=== PATIENT | female | born 1960 | race Two or more races ===

== ENCOUNTER 2016-11-14 12:51 | Inpatient (IN) | payer OTHER ==
[2016-11-14] MEDS ORDERED: ALBUTEROL SO4 2.5/IPRATROPIUM 0.5 INH SOL 3 ML VIAL.NEB. NEB ONE (13:25)
--- NOTE | 2016-11-14 13:42 | PDOC ---
History of Present Illness - General Chief Complaint: Shortness of Breath Stated Complaint: ASTHMA Time Seen by Provider: 11/14/16 13:33 History Source: Patient Exam Limitations: No Limitations - History of Present Illness Initial Comments: 11/14/16 18:54 Chief complaint: Wheezing shortness of breath History of present illness: Patient is a 56 year old female with history of hiatal hernia, hyperlipidemia, and asthma here today sent by her primary care provider due to worsening asthma with shortness of breath and wheezing. Patient reports had received 3 courses of prednisone during the last month. Patient denies any fever or chills. She reports that symptoms worsened last week. Patient currently is receiving tapering dose of prednisone is down to 30 mg daily has decreased by 10 mg every 2 days. Was intubated once many years ago due to her asthma. 11/14/16 18:55 11/14/16 18:58 Timing/Duration: getting worse Severity: moderate Associated Symptoms: reports: shortness of breath, other (wheezing ) Past History - Past Medical History Allergies/Adverse Reactions: Allergies Allergy/AdvReac Type Severity Reaction Status Date / Time No Known Allergies Allergy Verified 11/14/16 13:06 Home Medications: Ambulatory Orders Atorvastatin Ca [Lipitor] 20 mg PO DAILY 02/18/16 Esomeprazole Magnesium [Nexium 24Hr] 20 mg PO DAILY 02/18/16 Mometasone/Formoterol [Dulera 100 Mcg/5 Mcg Inhaler] 2 inh IH BID PRN 02/18/16 Amlodipine Besylate 10 mg PO ASDIR 11/14/16 Prednisone [Deltasone -] 10 mg PO ASDIR 11/14/16 Asthma: Yes GI Disorders: Yes (hiatal hernia gerd) Disorders: Yes (UTERINE FIBRIODS) Hypercholesterolemia: Yes Thyroid Disease: No - Surgical History Orthopedic Surgery: Yes (Right Elbow) - Psycho/Social/Smoking Cessation Hx Anxiety: Yes Suicidal Ideation: No Smoking Status: No Smoking History: Never smoked Have you smoked in the past 12 months: No Number of Cigarettes Smoked Daily: 0 Information on smoking cessation initiated: No Hx Alcohol Use: No Drug/Substance Use Hx: No Substance Use Type: None Hx Substance Use Treatment: No Review of Systems - Review of Systems Able to Perform ROS?: Yes Constitutional: No: Symptoms Reported HEENTM: No: Symptoms Reported Respiratory: Yes: Wheezing. No: Shortness of Breath Cardiac (ROS): No: Symptoms Reported ABD/GI: No: Symptoms Reported : No: Symptoms Reported Musculoskeletal: No: Symptoms Reported Integumentary: No: Symptoms Reported Neurological: No: Symptoms reported *Physical Exam - Vital Signs Last Vital Signs Temp Pulse Resp BP Pulse Ox 98.1 F 66 18 162/86 100 11/14/16 13:00 11/14/16 13:00 11/14/16 13:00 11/14/16 13:00 11/14/16 13:00 - Physical Exam General Appearance: Yes: Appropriately Dressed HEENT: positive: Normal ENT Inspection Neck: negative: Lymphadenopathy (R), Lymphadenopathy (L) Respiratory/Chest: positive: Wheezing (expiratory wheeze diffusely with grunt). negative: Chest Tender, Respiratory Distress, Accessory Muscle Use, Labored Respiration, Rapid RR, Decreased Breath Sounds, Crackles, Rales, Rhonchi, Stridor, Dullness Integumentary: positive: Normal Color ED Treatment Course - LABORATORY CBC & Chemistry Diagram: 11/14/16 14:06 11/14/16 14:06 Medical Decision Making - Medical Decision Making 11/14/16 18:58 11/14/16 18:58 Patient is a 56 year old female with history of hiatal hernia, hyperlipidemia, and asthma here today sent by her primary care provider due to worsening asthma with shortness of breath and wheezing. Patient reports had received 3 courses of prednisone during the last month. Patient denies any fever or chills. She reports that symptoms worsened last week. Patient currently is receiving tapering dose of prednisone is down to 30 mg daily has decreased by 10 mg every 2 days. Was intubated once many years ago due to her asthma. Pt. sent by PCP, she spoke with Dr. Gomez. asthma exacerbation PLAN: milagros now spoke to Dr. Gomez attending and Merissa Leavitt charge nurse pt,. to be transferred to the main ED for further eval *DC/Admit/Observation/Transfer Diagnosis at time of Disposition: Asthma exacerbation
[2016-11-14] MEDS ORDERED: methylPREDNISolone NA SUCC 125 MG/2 ML VIAL IVPB ONE (14:07)
--- NOTE | 2016-11-14 14:07 | PDOC ---
History of Present Illness - General Chief Complaint: Shortness of Breath Stated Complaint: ASTHMA Time Seen by Provider: 11/14/16 13:33 - History of Present Illness Initial Comments: 11/14/16 14:07 CHIEF COMPLAINT: Shortness of breath HISTORY OF PRESENT ILLNESS: This is a 56-year-old female with a history of asthma (history of intubation in 1992, on daily Dulera/albuterol), HTN, and HLD who presents for evaluation of shortness of breath and wheezing. Patient believes that her symptoms started when she was started on amlodipine for hypertension. She is sent by her PCP for evaluation because a course of outpatient prednisone (3 days) and home nebulizer treatments have been unsuccessful. Patient reports dry cough. She denies fevers/chills or any other symptoms. V/s on arrival are notable for BP 162/86. PCP [address] Dr. Heidi Lamas REVIEW OF SYSTEMS: GENERAL/CONSTITUTIONAL: No fever or chills. No weakness. No weight change. HEAD, EYES, EARS, NOSE AND THROAT: No change in vision. No ear pain or discharge. No sore throat. CARDIOVASCULAR: No chest pain or palpitations. RESPIRATORY: See HPI. GASTROINTESTINAL: No nausea, vomiting, diarrhea or constipation. GENITOURINARY: No dysuria, frequency, or change in urination. MUSCULOSKELETAL: No joint or muscle swelling or pain. No neck or back pain. SKIN: No rash or easy bruising. NEUROLOGIC: No headache, vertigo, loss of consciousness, or loss of sensation. PSYCHIATRIC: No depression or anxiety. ENDOCRINE: No increased thirst. No abnormal weight change. HEMATOLOGIC/LYMPHATIC: No anemia, easy bleeding, or history of blood clots. ALLERGIC/IMMUNOLOGIC: No hives or skin allergy. No latex allergy. PHYSICAL EXAM: GENERAL: The patient is awake, alert, and fully oriented, in no acute distress. HEAD: Normal with no signs of trauma. ENT: Pupils equal, round and reactive to light, extraocular movements intact, sclera anicteric, conjunctiva clear. Neck supple. LUNGS: Diffuse expiratory wheezing with poor air entry bilaterally. Dry cough. CV: RRR, S1/S2, no MRG. Cap refill < 2 sec. ABDOMEN: Soft, non-distended, non-tender. EXTREMITIES: Normal range of motion, 1+ pedal edema bilaterally. NEUROLOGICAL: Normal speech, normal gait. CN II-XII grossly intact. PSYCH: Normal mood, normal affect. SKIN: Warm, dry, normal turgor, no rashes or lesions noted. Past History - Past Medical History Allergies/Adverse Reactions: Allergies Allergy/AdvReac Type Severity Reaction Status Date / Time No Known Allergies Allergy Verified 11/14/16 13:06 Home Medications: Ambulatory Orders Atorvastatin Ca [Lipitor] 20 mg PO DAILY 02/18/16 Esomeprazole Magnesium [Nexium 24Hr] 20 mg PO DAILY 02/18/16 Mometasone/Formoterol [Dulera 100 Mcg/5 Mcg Inhaler] 2 inh IH BID PRN 02/18/16 Amlodipine Besylate 10 mg PO ASDIR 11/14/16 Prednisone [Deltasone -] 10 mg PO ASDIR 11/14/16 Asthma: Yes GI Disorders: Yes (hiatal hernia gerd) Disorders: Yes (UTERINE FIBRIODS) Hypercholesterolemia: Yes Thyroid Disease: No - Surgical History Orthopedic Surgery: Yes (Right Elbow) - Psycho/Social/Smoking Cessation Hx Anxiety: Yes Suicidal Ideation: No Smoking Status: No Smoking History: Never smoked Have you smoked in the past 12 months: No Number of Cigarettes Smoked Daily: 0 Information on smoking cessation initiated: No Hx Alcohol Use: No Drug/Substance Use Hx: No Substance Use Type: None Hx Substance Use Treatment: No *Physical Exam - Vital Signs Last Vital Signs Temp Pulse Resp BP Pulse Ox 98.1 F 66 18 162/86 100 11/14/16 13:00 11/14/16 13:00 11/14/16 13:00 11/14/16 13:00 11/14/16 13:00 ED Treatment Course - LABORATORY CBC & Chemistry Diagram: 11/14/16 14:06 11/14/16 14:06 - RADIOLOGY Radiology Studies Ordered: Category Date Time Status CHEST X-RAY PORTABLE* [RAD] Stat Radiology 11/14/16 14:02 Ordered Medical Decision Making - Medical Decision Making 11/14/16 16:00 A/P: 56 year old female with wheezing and dyspnea unrelieved by prednisone and alubterol nebulizers at home. 1. EKG 2. Basic labs 3. CXR 4. DuoNeb x 1 followed by albuterol nebs x 3 5. SoluMedrol 125mg IVP x 1 6. Re-assess 11/14/16 16:57 CXR: Increased interstitial markings. Patient re-evaluated. Still with diffuse expiratory wheezing, no improvement in symptoms. Will give Magnesium, place in observation. *DC/Admit/Observation/Transfer Diagnosis at time of Disposition: Exacerbation of asthma - Discharge Dispostion Condition at time of disposition: Guarded Admit: Yes - Referrals Referrals: Heidi Lamas MD [Primary Care Provider] -
[2016-11-14] MEDS: ALBUTEROL SO4 0.083% IH SOL 2.5 MG/3 ML VIAL.NEB. NEB SCH ×3 (14:15→14:45)
[2016-11-14] MEDS ORDERED: ALBUTEROL SO4 0.083% IH SOL 2.5 MG/3 ML VIAL.NEB. NEB ONE (14:27)
[2016-11-14] MEDS ORDERED: methylPREDNISolone NA SUCC 125 MG/2 ML VIAL ONE (14:27)
[2016-11-14 15:09] LABS: BASOPHIL 0.4 % (0-2.0); EOSINOPHIL 0.1 % (0-4.5); MCH 28.8 pg (25.7-33.7); MCHC 33.4 g/dl (32.0-36.0); MEAN CELL VOLUME 86.2 fl (80-96); MEAN PLT VOLUME 12.4 fl (7.5-11.1); NEUTROPHILS 82.4 % (42.8-82.8); PLATELET COUNT 225 K/MM3 (134-434); RDW 14.9 % (11.6-15.6); WHITE BLOOD COUNT 11.8 K/mm3 (4.0-10.0)
[2016-11-14 15:22] LABS: ALBUMIN 3.6 g/dl (3.4-5.0); ANION GAP 9 (8-16); BILIRUBIN,TOTAL 0.5 mg/dL (0.2-1.0); CALCIUM 8.9 mg/dL (8.5-10.1); CO2 25 mmol/L (21-32); CREATININE 0.8 mg/dL (0.55-1.02); GLUCOSE,RANDOM 184 mg/dL (74-106); SGPT/ALT 37 U/L (12-78); TOT PROT 7.3 g/dl (6.4-8.2)
[2016-11-14 15:25] LABS: ALK PHOS 85 U/L (45-117)
[2016-11-14 15:26] LABS: SGOT/AST 37 U/L (15-37)
[2016-11-14] MEDS ORDERED: MAGNESIUM SULF 50% (8.12 MEQ/2 ML-1 GM VIAL) IVPB ONE (16:55)
[2016-11-14] MEDS ORDERED: PATIENT'S OWN MEDICATION (NON-FORMULARY) (Mometasone/Formoterol [Dulera 100 Mcg/5 Mcg Inha IH PRN (17:13)
[2016-11-14] MEDS ORDERED: MAGNESIUM SULF 50% (8.12 MEQ/2 ML-1 GM VIAL) ONE (17:13)
[2016-11-14] MEDS: ALBUTEROL SO4 2.5/IPRATROPIUM 0.5 INH SOL 3 ML VIAL.NEB. NEB SCH ×2 (17:24→23:13)
--- NOTE | 2016-11-14 17:36 | PDOC ---
*Physical Exam - Vital Signs Last Vital Signs Temp Pulse Resp BP Pulse Ox 98.1 F 66 18 162/86 100 11/14/16 13:00 11/14/16 13:00 11/14/16 13:00 11/14/16 13:00 11/14/16 13:00 ED Treatment Course - LABORATORY CBC & Chemistry Diagram: 11/14/16 14:06 11/14/16 14:06 - ADDITIONAL ORDERS Additional order review: Laboratory Results 11/14/16 11/14/16 11/14/16 14:06 14:06 14:06 Sodium 140 Potassium 5.1 D Chloride 106 Carbon Dioxide 25 Anion Gap 9 BUN 15 Creatinine 0.8 Creat Clearance w eGFR > 60 Random Glucose 184 H D Calcium 8.9 Total Bilirubin 0.5 D AST 37 D ALT 37 D Alkaline Phosphatase 85 D B-Natriuretic Peptide 132.77 H Total Protein 7.3 Albumin 3.6 Urine HCG, Qual Negative 11/14/16 14:06 RBC 4.95 MCV 86.2 MCHC 33.4 RDW 14.9 D MPV 12.4 H D Neutrophils % 82.4 D Lymphocytes % 15.5 D Monocytes % 1.6 L Eosinophils % 0.1 D Basophils % 0.4 - Medications Given in the ED: ED Medications Discontinued Medications Generic Name Dose Route Start Last Admin Trade Name Freq PRN Reason Stop Dose Admin Albuterol Sulfate 1 amp 11/14/16 14:15 11/14/16 14:45 Ventolin 0.083% Nebulizer Soln - NEB 11/14/16 14:46 1 amp Q15M TAISHA Administration Magnesium Sulfate 2 gm 11/14/16 16:55 11/14/16 17:23 Magnesium Sulfate IVPB 11/14/16 16:56 2 gm ONCE ONE Administration Methylprednisolone Sodium Succinate 125 mg 11/14/16 14:07 11/14/16 14:44 Solu-Medrol - IVPB 11/14/16 14:08 125 mg ONCE ONE Administration Medical Decision Making - Medical Decision Making 11/14/16 17:35 Agree with RESPIRATORY SUPPORT TECHNICIAN's evaluation, assessment, and plan. 56 F with asthma exacerbation. Admit to obs for continuous nebs. *DC/Admit/Observation/Transfer Diagnosis at time of Disposition: Asthma exacerbation - Referrals Referrals: Heidi Lamas MD [Primary Care Provider] - - Patient Instructions - Post Discharge Activity
--- NOTE | 2016-11-14 18:09 | HP ---
CHIEF COMPLAINT: Shortness of breath PCP: Dr. Heidi Lamas HISTORY OF PRESENT ILLNESS: This is a 56 year old female with PMHx of asthma, HTN, hyperlipidemia, who presented to the ED with wheezing and shortness of breath. The patient reports her symptoms began "a few weeks ago" and she believes it is from her [facility]. She reports taking a 3 days course of prednisone and home nebulizers with no relief in her symptoms. She reports non-productive cough. She denies any hemoptysis, headache, dizziness, nausea, vomiting, chest pain, urinary symptoms. Off note, the patient reports starting a blood pressure medication (does not recall the name) in June. She reports the first BP med did not work and the second BP med that she was taking caused lower extremity and facial edema (also does not recall the name). ER course was notable for: (1) Temp 98.2, pulse 74, BP 131/72, O2 98% on RA, resp 20 (2) WBC 11.8 (3) Solu-medrol 125mg IVPB given, Duonebs given Recent Travel: denies PAST MEDICAL HISTORY: as above PAST SURGICAL HISTORY: Total hysterectomy and b/l salpingectomy Social History: Smoking: denies Alcohol: denies Drugs: denies Family History: Denies Allergies No Known Allergies Allergy (Verified 11/14/16 13:06) HOME MEDICATIONS: Home Medications Medication Instructions Recorded Atorvastatin Ca [Lipitor] 20 mg PO DAILY 02/18/16 Esomeprazole Magnesium [Nexium 20 mg PO DAILY 02/18/16 24Hr] Mometasone/Formoterol [Dulera 100 2 inh IH BID PRN 02/18/16 Mcg/5 Mcg Inhaler] Amlodipine Besylate 10 mg PO ASDIR 11/14/16 Prednisone [Deltasone -] 10 mg PO ASDIR 11/14/16 REVIEW OF SYSTEMS CONSTITUTIONAL: Absent: fever, chills, diaphoresis, generalized weakness, malaise, loss of appetite, weight change HEENT: Absent: rhinorrhea, nasal congestion, throat pain, difficulty swallowing , ear pain, eye pain, visual changes CARDIOVASCULAR: Absent: chest pain, syncope, palpitations, irregular heart rate , lightheadedness, peripheral edema RESPIRATORY: Shortness of breath and wheezing x "a few weeks". Absent: dyspnea with exertion, orthopnea, stridor, hemoptysis GASTROINTESTINAL:Absent: abdominal pain, abdominal distension, nausea, vomiting , diarrhea, constipation, melena, hematochezia GENITOURINARY: Absent: dysuria, frequency, urgency, hesitancy, hematuria, flank pain, genital pain MUSCULOSKELETAL: Absent: myalgia, arthralgia, joint swelling, back pain, neck pain SKIN: Absent: rash, itching, pallor HEMATOLOGIC/IMMUNOLOGIC: Absent: easy bleeding, easy bruising, lymphadenopathy, frequent infections ENDOCRINE:Absent: unexplained weight gain, unexplained weight loss, heat intolerance, cold intolerance NEUROLOGIC: Absent: headache, focal weakness or paresthesias, dizziness, unsteady gait, seizure, mental status changes, bladder or bowel incontinence PSYCHIATRIC: Absent: anxiety, depression, suicidal or homicidal ideation, hallucinations. PHYSICAL EXAMINATION Vital Signs Period Temp Pulse Resp BP Sys/Christy Pulse Ox Last 24 Hr 98.1 F 66 18 162/86 100 GENERAL: Awake, alert, and fully oriented, in no acute distress. HEAD: Normal with no signs of trauma. EYES: Pupils equal, round and reactive to light, extraocular movements intact, sclera anicteric, conjunctiva clear. No lid lag. EARS, NOSE, THROAT: Ears normal, nares patent, oropharynx clear without exudates. Moist mucous membranes. NECK: Normal range of motion, supple without lymphadenopathy, JVD, or masses. LUNGS: Forceful end expiratory wheezing. No crackles. No accessory muscle use. HEART: Regular rate and rhythm, normal S1 and S2 without murmur, rub or gallop. ABDOMEN: Soft, nontender, not distended, normoactive bowel sounds, no guarding, no rebound, no masses. No hepatomegaly or splenomegaly. MUSCULOSKELETAL: Normal range of motion at all joints. No bony deformities or tenderness. No CVA tenderness. UPPER EXTREMITIES: 2+ pulses, warm, well-perfused. No cyanosis. No clubbing. No peripheral edema. LOWER EXTREMITIES: 2+ pulses, warm, well-perfused. No calf tenderness. No peripheral edema. NEUROLOGICAL: Cranial nerves II-XII intact. Normal speech. Normal gait. PSYCHIATRIC: Cooperative. Good eye contact. Appropriate mood and affect. SKIN: Warm, dry, normal turgor, no rashes or lesions noted, normal capillary refill. CBCD WBC 11.8 K/mm3 (4.0-10.0) H 11/14/16 14:06 RBC 4.95 M/mm3 (3.60-5.2) 11/14/16 14:06 Hgb 14.2 GM/dL (10.7-15.3) D 11/14/16 14:06 Hct 42.6 % (32.4-45.2) 11/14/16 14:06 MCV 86.2 fl (80-96) 11/14/16 14:06 MCHC 33.4 g/dl (32.0-36.0) 11/14/16 14:06 RDW 14.9 % (11.6-15.6) D 11/14/16 14:06 Plt Count 225 K/MM3 (134-434) D 11/14/16 14:06 MPV 12.4 fl (7.5-11.1) H D 11/14/16 14:06 CMP Sodium 140 mmol/L (136-145) 11/14/16 14:06 Potassium 5.1 mmol/L (3.5-5.1) D 11/14/16 14:06 Chloride 106 mmol/L (98-107) 11/14/16 14:06 Carbon Dioxide 25 mmol/L (21-32) 11/14/16 14:06 Anion Gap 9 (8-16) 11/14/16 14:06 BUN 15 mg/dL (7-18) 11/14/16 14:06 Creatinine 0.8 mg/dL (0.55-1.02) 11/14/16 14:06 Creat Clearance w eGFR > 60 (>60) 11/14/16 14:06 Random Glucose 184 mg/dL (74-106) H D 11/14/16 14:06 Calcium 8.9 mg/dL (8.5-10.1) 11/14/16 14:06 Total Bilirubin 0.5 mg/dL (0.2-1.0) D 11/14/16 14:06 AST 37 U/L (15-37) D 11/14/16 14:06 ALT 37 U/L (12-78) D 11/14/16 14:06 Alkaline Phosphatase 85 U/L (45-117) D 11/14/16 14:06 Total Protein 7.3 g/dl (6.4-8.2) 11/14/16 14:06 Albumin 3.6 g/dl (3.4-5.0) 11/14/16 14:06 Assessment: This is a 56 year old female with PMHx of asthma, HTN, hyperlipidemia, who presented to the ED with wheezing and shortness of breath. Plan: 1) Pulmonary: Acute asthma exacerbation - Forceful end expiratory wheezing on exam, when asked to breath without forceful wheezing, lungs CTA bilaterally - Continue Solumedrol - Continue Duonebs - Continue Dulera - Monitor O2 - F/u pulmonary consult Increased interstitial lung markings - May be on basis of chronic lung disease - BNP 132.7 2) Cardiology: HTN - On Norvasc at home - Patient believes Norvasc is causing difficulty breathing - Placed call to Dr. Lamas's office to find out what BP medications the patient was on in the past that caused swelling and if true medication adverse reaction - Hold Norvasc for now - Monitor BP closely Hyperlipidemia - Continue Lipitor 3) F/E/N: - Low sodium diet - Monitor electrolytes 4) Prophylaxis: - OOB ambulating - Heparin 5,000u sq tid 5) Dispo: - Requires continued inpatient care CODE STATUS: FULL CODE Problem List - Problem (1) Asthma exacerbation Code(s): J45.901 - UNSPECIFIED ASTHMA WITH (ACUTE) EXACERBATION Visit type - Emergency Visit Emergency Visit: Yes Care time: The patient presented to the Emergency Department on the above date and was hospitalized for further evaluation of their emergent condition. - New Patient This patient is new to me today: Yes Date on this admission: 11/14/16 - Critical Care Critical Care patient: No
--- NOTE | 2016-11-14 18:49 | EKG ---
Test Reason : Blood Pressure : / mmHG Vent. Rate : 061 BPM Atrial Rate : 061 BPM P-R Int : 112 ms QRS Dur : 082 ms QT Int : 400 ms P-R-T Axes : 057 033 032 degrees QTc Int : 402 ms NORMAL SINUS RHYTHM NORMAL ECG WHEN COMPARED WITH ECG OF 10-AUG-2011 13:07, NO SIGNIFICANT CHANGE WAS FOUND Confirmed by DENA YANG MD ([id number]) on 11/14/2016 6:49:00 PM Referred By: Confirmed By:DENA YANG MD
[2016-11-14] MEDS ORDERED: HEPARIN NA (PORCINE) 5,000 UNITS/ML 1ML VIAL ONE (19:25)
[2016-11-14] MEDS: HEPARIN NA (PORCINE) 5,000 UNITS/ML 1ML VIAL SQ SCH (19:32)
[2016-11-14] MEDS: ATORVASTATIN CA 20 MG TABLET (FP) PO SCH (22:52)
[2016-11-15] MEDS: ALBUTEROL SO4 2.5/IPRATROPIUM 0.5 INH SOL 3 ML VIAL.NEB. NEB SCH ×6 (02:00→22:10)
[2016-11-15] MEDS: methylPREDNISolone NA SUCC 40 MG/1 ML VIAL IVPB SCH ×3 (02:03→17:46)
[2016-11-15 03:36] VITALS: BMI 26.7
[2016-11-15] MEDS: HEPARIN NA (PORCINE) 5,000 UNITS/ML 1ML VIAL SQ SCH ×3 (05:54→21:26)
[2016-11-15 08:23] LABS: MCH 28.2 pg (25.7-33.7); MCHC 32.5 g/dl (32.0-36.0); MEAN CELL VOLUME 86.9 fl (80-96); MEAN PLT VOLUME 12.5 fl (7.5-11.1); PLATELET COUNT 219 K/MM3 (134-434); WHITE BLOOD COUNT 17.4 K/mm3 (4.0-10.0)
[2016-11-15 08:43] LABS: ALBUMIN 3.6 g/dl (3.4-5.0); ALK PHOS 90 U/L (45-117); ANION GAP 8 (8-16); BILIRUBIN,TOTAL 0.3 mg/dL (0.2-1.0); CALCIUM 9.3 mg/dL (8.5-10.1); CO2 27 mmol/L (21-32); GLUCOSE,RANDOM 122 mg/dL (74-106)
[2016-11-15 08:47] LABS: CREATININE 0.9 mg/dL (0.55-1.02); SGOT/AST 12 U/L (15-37); SGPT/ALT 34 U/L (12-78); TOT PROT 7.3 g/dl (6.4-8.2)
[2016-11-15] MEDS: PANTOPRAZOLE 20 MG TABLET (FP) PO SCH (10:28)
--- NOTE | 2016-11-15 15:06 | CONSULT ---
Consultation: REQUESTING PROVIDER: Dr. Mcclellan CONSULT REQUEST: We have been asked to medically evaluate this patient for ( specify). HISTORY OF PRESENT ILLNESS: Pt is 56F w/ PMH Asthma, HTN, HLD who came to ED with swelling of the face and legs with shortness of breath. Pt states she first started having symptoms of chest tightness in June. She states that around that time, she was started on a new BP medication (pt does not recall which one). She told her PCP about the swelling, and she was changed to a different medication (also unkown which one) , which controlled her pressure well. Her feeling of chest tightness persisted, however. She was then switched to a third medication (Amlodipine) on 10/18/16. She continued to have episodes of chest tightness and facial swelling. All of her episodes of chest tightness and difficulty breathing felt the same as each other, but they are noticeably different from any other asthma symptoms she has had in the past, and they do not appear to be associated with activity or anything else apart from coincident timing with the start of her BP medication. Additionally, pt reports that at the beginning of this month (at the same time that Amlodipine was started) she developed a cold, which was accompanied by cough and malaise and shortness of breath yet distinct from that which started at the same time as her blood pressure medications. That cough has resolved. The patient noted that since she has been on her steroid nebs, her symptoms have improved greatly. REVIEW OF SYSTEMS: CONSTITUTIONAL: Absent: fever, chills, diaphoresis, generalized weakness, malaise, loss of appetite, weight change HEENT: Absent: rhinorrhea, nasal congestion, throat pain, throat swelling, difficulty swallowing, mouth swelling, ear pain, eye pain, visual changes CARDIOVASCULAR: Absent: chest pain, syncope, palpitations, irregular heart rate, lightheadedness , peripheral edema RESPIRATORY: shortness of breath, wheezing Absent: cough, , dyspnea with exertion, orthopnea, stridor, hemoptysis GASTROINTESTINAL: Absent: abdominal pain, abdominal distension, nausea, vomiting, diarrhea, constipation, melena, hematochezia GENITOURINARY: Absent: dysuria, frequency, urgency, hesitancy, hematuria, flank pain, genital pain MUSCULOSKELETAL: Absent: myalgia, arthralgia, joint swelling, back pain, neck pain SKIN: Absent: rash, itching, pallor HEMATOLOGIC/IMMUNOLOGIC: Absent: easy bleeding, easy bruising, lymphadenopathy, frequent infections ENDOCRINE: Absent: unexplained weight gain, unexplained weight loss, heat intolerance, cold intolerance NEUROLOGIC: Absent: headache, focal weakness or paresthesias, dizziness, unsteady gait, seizure, mental status changes, bladder or bowel incontinence PSYCHIATRIC: Absent: anxiety, depression, suicidal or homicidal ideation, hallucinations. PHYSICAL EXAMINATION Vital Signs - 24 hr 11/14/16 11/15/16 11/15/16 17:44 01:10 03:26 Temperature 98.2 F 98.0 F 98.2 F Pulse Rate 79 76 Pulse Rate [ 74 Apical] Respiratory 20 20 20 Rate Blood Pressure 105/60 108/56 Blood Pressure 131/72 [Left] O2 Sat by Pulse 98 98 Oximetry (%) 11/15/16 11/15/16 11/15/16 06:00 09:00 09:09 Temperature 98.7 F 98.2 F Pulse Rate 65 76 Pulse Rate [ Apical] Respiratory 20 18 Rate Blood Pressure 127/67 121/67 Blood Pressure [Left] O2 Sat by Pulse 95 Oximetry (%) 11/15/16 11:19 Temperature Pulse Rate 76 Pulse Rate [ Apical] Respiratory Rate Blood Pressure Blood Pressure [Left] O2 Sat by Pulse 98 Oximetry (%) GENERAL: Awake, alert, and fully oriented, in no acute distress. Pt on high flow mask HEAD: Normal with no signs of trauma. EYES: extraocular movements intact, sclera anicteric, conjunctiva clear. No lid lag. EARS, NOSE, THROAT: Ears normal, nares patent, oropharynx clear without exudates. Moist mucous membranes. NECK: Normal range of motion, supple without lymphadenopathy, JVD, or masses. No bruits LUNGS: Breath sounds equal, clear to auscultation bilaterally. No wheezes, and no crackles. No accessory muscle use. HEART: Regular rate and rhythm, normal S1 and S2 without murmur, rub or gallop. ABDOMEN: Soft, nontender, not distended, normoactive bowel sounds, no guarding, no rebound, no masses. No hepatomegaly or splenomegaly. MUSCULOSKELETAL: Normal range of motion at all joints. No bony deformities or tenderness. No CVA tenderness. UPPER EXTREMITIES: 2+ pulses, warm, well-perfused. No cyanosis. No clubbing. Cap refill <2 seconds. No peripheral edema. LOWER EXTREMITIES: 2+ pulses, warm, well-perfused. No calf tenderness. 1+ peripheral edema. NEUROLOGICAL: Cranial nerves II-XII intact. Normal speech. Normal gait. PSYCHIATRIC: Cooperative. Good eye contact. Appropriate mood and affect. SKIN: Warm, dry, normal turgor, no rashes or lesions noted. Laboratory Results - last 24 hr 11/15/16 11/15/16 05:40 05:40 WBC 17.4 H D RBC 5.13 Hgb 14.5 Hct 44.6 MCV 86.9 MCH 28.2 MCHC 32.5 RDW 15.0 Plt Count 219 MPV 12.5 H Sodium 140 Potassium 4.4 Chloride 105 Carbon Dioxide 27 Anion Gap 8 BUN 25 H D Creatinine 0.9 Creat Clearance w eGFR > 60 Random Glucose 122 H D Calcium 9.3 Total Bilirubin 0.3 D AST 12 L D ALT 34 Alkaline Phosphatase 90 Total Protein 7.3 Albumin 3.6 Active Medications Generic Name Dose Route Start Last Admin Trade Name Freq PRN Reason Stop Dose Admin Albuterol/Ipratropium 1 amp 11/14/16 17:15 11/15/16 09:30 Duoneb - NEB 1 amp Q4H TAISHA Administration Atorvastatin Calcium 20 mg 11/14/16 22:00 11/14/16 22:52 Lipitor - PO 20 mg HS TAISHA Administration Heparin Sodium (Porcine) 5,000 unit 11/14/16 18:00 11/15/16 14:23 Heparin - SQ Not Given TID TAISHA Methylprednisolone Sodium Succinate 40 mg 11/15/16 02:00 11/15/16 10:27 Solu-Medrol - IVPB 40 mg Q8H-IV TAISHA Administration Non-Formulary Medication 2 inh 11/15/16 22:00 Mometasone/Formoterol [Dulera 100 Mcg/5 Mcg Inhaler] IH BID TAISHA Pantoprazole Sodium 20 mg 11/15/16 10:00 11/15/16 10:28 Protonix - PO 20 mg DAILY TAISHA Administration ASSESSMENT/PLAN: 56y/o F w/ PMH HTN, HLD, asthma who presented with SOB and swelling of the face beginning around the same time as starting a new medication admitted for asthma exacerbation. #Asthma exacerbation -possibly 2/2 viral illness -CXR neg for PNA -Continue nebs -pt improving with therapy #Facial swelling -unclear etiology -establish which meds pt has been on -monitor BP -suggest allergy consult -f/u out pt once stable Dispo: We will continue to follow the patient. Thank you for this consultative opportunity. Visit type - Emergency Visit Emergency Visit: No - New Patient This patient is new to me today: No - Critical Care Critical Care patient: No
--- NOTE | 2016-11-15 17:04 | PN ---
Teaching Attending Note Name of Resident: Margarito Hanley ATTENDING PHYSICIAN STATEMENT I saw and evaluated the patient. I reviewed the resident's note and discussed the case with the resident. I agree with the resident's findings and plan as documented. Monica Churchill MD
--- NOTE | 2016-11-15 17:56 | PN ---
Progress Note (short form) - Note Progress Note: Subjective: The patient was seen and examined at the bedside, she reports she is feeling better today. Current Medications Generic Name Dose Route Start Last Admin Trade Name Enriqueta PRN Reason Stop Dose Admin Albuterol/Ipratropium 1 amp 11/14/16 17:15 11/15/16 13:40 Duoneb - NEB 1 amp Q4H TAISHA Administration Atorvastatin Calcium 20 mg 11/14/16 22:00 11/14/16 22:52 Lipitor - PO 20 mg HS TAISHA Administration Heparin Sodium (Porcine) 5,000 unit 11/14/16 18:00 11/15/16 14:23 Heparin - SQ Not Given TID TAISHA Methylprednisolone Sodium Succinate 40 mg 11/15/16 02:00 11/15/16 10:27 Solu-Medrol - IVPB 40 mg Q8H-IV TAISHA Administration Non-Formulary Medication 2 inh 11/15/16 22:00 Mometasone/Formoterol [Dulera 100 Mcg/5 Mcg Inhaler] IH BID TAISHA Pantoprazole Sodium 20 mg 11/15/16 10:00 11/15/16 10:28 Protonix - PO 20 mg DAILY TAISHA Administration Objective: Vital Signs Period Temp Pulse Resp BP Sys/Christy Pulse Ox Last 24 Hr 98.0 F-98.9 F 65-79 18-22 105-149/56-80 95-98 Physical Exam: General: NAD, A&Ox3 Lungs: CTA bilaterally, forceful intentional end expiratory wheezing Heart: RRR, S1S2 Abd: Soft, non-tender, non-distended. Normoactive bowel sounds Ext: Warm, well-perfused. 2+ DP/PT bilaterally Neuro: CN 2-12 intact CBCD WBC 17.4 K/mm3 (4.0-10.0) H D 11/15/16 05:40 RBC 5.13 M/mm3 (3.60-5.2) 11/15/16 05:40 Hgb 14.5 GM/dL (10.7-15.3) 11/15/16 05:40 Hct 44.6 % (32.4-45.2) 11/15/16 05:40 MCV 86.9 fl (80-96) 11/15/16 05:40 MCHC 32.5 g/dl (32.0-36.0) 11/15/16 05:40 RDW 15.0 % (11.6-15.6) 11/15/16 05:40 Plt Count 219 K/MM3 (134-434) 11/15/16 05:40 MPV 12.5 fl (7.5-11.1) H 11/15/16 05:40 CMP Sodium 140 mmol/L (136-145) 11/15/16 05:40 Potassium 4.4 mmol/L (3.5-5.1) 11/15/16 05:40 Chloride 105 mmol/L (98-107) 11/15/16 05:40 Carbon Dioxide 27 mmol/L (21-32) 11/15/16 05:40 Anion Gap 8 (8-16) 11/15/16 05:40 BUN 25 mg/dL (7-18) H D 11/15/16 05:40 Creatinine 0.9 mg/dL (0.55-1.02) 11/15/16 05:40 Creat Clearance w eGFR > 60 (>60) 11/15/16 05:40 Random Glucose 122 mg/dL (74-106) H D 11/15/16 05:40 Calcium 9.3 mg/dL (8.5-10.1) 11/15/16 05:40 Total Bilirubin 0.3 mg/dL (0.2-1.0) D 11/15/16 05:40 AST 12 U/L (15-37) L D 11/15/16 05:40 ALT 34 U/L (12-78) 11/15/16 05:40 Alkaline Phosphatase 90 U/L (45-117) 11/15/16 05:40 Total Protein 7.3 g/dl (6.4-8.2) 11/15/16 05:40 Albumin 3.6 g/dl (3.4-5.0) 11/15/16 05:40 Assessment: This is a 56 year old female with PMHx of asthma, HTN, hyperlipidemia, who presented to the ED with wheezing and shortness of breath. Plan: 1) Pulmonary: Acute asthma exacerbation - Forceful end expiratory wheezing on exam, when asked to breath without forceful wheezing, lungs CTA bilaterally - Continue Solumedrol - Continue Duonebs - Continue Dulera - Monitor O2 - Appreciate pulmonary consult Increased interstitial lung markings - May be on basis of chronic lung disease - BNP 132.7 2) Cardiology: HTN - On Norvasc at home - Discussed with Dr. Lamas: patient had angioedema on hctz and losartan. She does not believe Norvasc is causing shortness of breath and wheezing - Patient reports swollen eyes after receiving Norvasc yesterday - Hold Norvasc for now - Monitor BP closely Hyperlipidemia - Continue Lipitor 3) F/E/N: - Low sodium diet - Monitor electrolytes 4) Prophylaxis: - OOB ambulating - Heparin 5,000u sq tid 5) Dispo: - Requires continued inpatient care CODE STATUS: FULL CODE Problem List - Problems (1) Asthma exacerbation Code(s): J45.901 - UNSPECIFIED ASTHMA WITH (ACUTE) EXACERBATION Visit type - Emergency Visit Emergency Visit: Yes ED Registration Date: 11/14/16 Care time: The patient presented to the Emergency Department on the above date and was hospitalized for further evaluation of their emergent condition. - New Patient This patient is new to me today: No - Critical Care Critical Care patient: No
[2016-11-15] MEDS: ATORVASTATIN CA 20 MG TABLET (FP) PO SCH (21:25)
[2016-11-15] MEDS ORDERED: PATIENT'S OWN MEDICATION (NON-FORMULARY) (Mometasone/Formoterol [Dulera 100 Mcg/5 Mcg Inha IH SCH (22:00)
[2016-11-16] MEDS: methylPREDNISolone NA SUCC 40 MG/1 ML VIAL IVPB SCH ×2 (01:36→11:03)
[2016-11-16] MEDS: ALBUTEROL SO4 2.5/IPRATROPIUM 0.5 INH SOL 3 ML VIAL.NEB. NEB SCH ×4 (02:34→14:37)
[2016-11-16] MEDS: HEPARIN NA (PORCINE) 5,000 UNITS/ML 1ML VIAL SQ SCH ×2 (05:55→15:00)
[2016-11-16 08:33] LABS: BASOPHIL 0.4 % (0-2.0); MCH 27.9 pg (25.7-33.7); MCHC 32.3 g/dl (32.0-36.0); MEAN CELL VOLUME 86.3 fl (80-96); MEAN PLT VOLUME 11.5 fl (7.5-11.1); NEUTROPHILS 86.5 % (42.8-82.8); PLATELET COUNT 223 K/MM3 (134-434); WHITE BLOOD COUNT 17.4 K/mm3 (4.0-10.0)
[2016-11-16 09:27] LABS: ANION GAP 5 (8-16); CALCIUM 9.7 mg/dL (8.5-10.1); CO2 30 mmol/L (21-32); CREATININE 0.8 mg/dL (0.55-1.02); GLUCOSE,RANDOM 186 mg/dL (74-106)
--- NOTE | 2016-11-16 10:18 | PN ---
Physical Exam: SUBJECTIVE: Patient seen and examined at bedside. No acute events overnight. Pt states that since she did not take her norvasc today, she hasn't had swelling. She believes this medication was the problem. Still complains of mild chest tightness. No other complaints. Denies headache, nausea, vomiting, diarrhea, dysphagia. OBJECTIVE: Vital Signs Period Temp Pulse Resp BP Sys/Christy Pulse Ox Last 24 Hr 98 F-98.9 F 55-76 18-22 130-149/65-80 97-98 GENERAL: The patient is awake, alert, and fully oriented, in no acute distress. HEAD: Normal with no signs of trauma. EYES: sclera anicteric, conjunctiva clear. No ptosis. ENT: oropharynx clear without exudates, moist mucous membranes. NECK: Trachea midline, full range of motion, supple. LUNGS: Breath sounds equal, clear to auscultation bilaterally, intermittent scattered wheezes only on forceful exhalation, no crackles, no accessory muscle use. HEART: Regular rate and rhythm, S1, S2 without murmur, rub or gallop. ABDOMEN: Soft, nontender, nondistended, normoactive bowel sounds, no guarding, no rebound, no hepatosplenomegaly, no masses. EXTREMITIES: 2+ pulses, warm, well-perfused, no edema. NEUROLOGICAL: Cranial nerves II through XII grossly intact. Normal speech, gait not observed. PSYCH: Normal mood, normal affect. SKIN: Warm, dry, normal turgor, no rashes or lesions noted Laboratory Results - last 24 hr 11/16/16 11/16/16 08:05 08:05 WBC 17.4 H RBC 4.99 Hgb 13.9 Hct 43.1 MCV 86.3 MCH 27.9 MCHC 32.3 RDW 15.0 Plt Count 223 MPV 11.5 H Neutrophils % 86.5 H Lymphocytes % 9.0 D Monocytes % 4.1 D Eosinophils % 0.0 D Basophils % 0.4 Sodium 140 Potassium 4.4 Chloride 105 Carbon Dioxide 30 Anion Gap 5 L BUN 20 H Creatinine 0.8 Random Glucose 186 H D Calcium 9.7 Active Medications Generic Name Dose Route Start Last Admin Trade Name Freq PRN Reason Stop Dose Admin Albuterol/Ipratropium 1 amp 11/14/16 17:15 11/16/16 06:05 Duoneb - NEB 1 amp Q4H TAISHA Administration Atorvastatin Calcium 20 mg 11/14/16 22:00 11/15/16 21:25 Lipitor - PO 20 mg HS TAISHA Administration Heparin Sodium (Porcine) 5,000 unit 11/14/16 18:00 11/16/16 05:55 Heparin - SQ Not Given TID TAISHA Methylprednisolone Sodium Succinate 40 mg 11/15/16 02:00 11/16/16 01:36 Solu-Medrol - IVPB 40 mg Q8H-IV TAISHA Administration Non-Formulary Medication 2 inh 11/15/16 22:00 Mometasone/Formoterol [Dulera 100 Mcg/5 Mcg Inhaler] IH BID TAISHA Pantoprazole Sodium 20 mg 11/15/16 10:00 11/15/16 10:28 Protonix - PO 20 mg DAILY TAISHA Administration ASSESSMENT/PLAN: 56y/o F w/ PMH HTN, HLD, asthma who presented with SOB and swelling of the face beginning around the same time as starting a new medication admitted for asthma exacerbation. #Asthma exacerbation -possibly 2/2 viral illness -CXR neg for PNA -Continue nebs -pt improving with therapy. -continue current therapy #Facial swelling -unclear etiology -monitor BP -suggest allergy consult -f/u out pt once stable Margarito Hanley MD PGY-1 Visit type - Emergency Visit Emergency Visit: No - New Patient This patient is new to me today: No - Critical Care Critical Care patient: No - Discharge Referral Referred to [facility] Med P.[facility] No
[2016-11-16] MEDS: PANTOPRAZOLE 20 MG TABLET (FP) PO SCH (11:03)
[2016-11-16] MEDS ORDERED: predniSONE 20 MG TABLET (UD) PO SCH (12:00)
--- NOTE | 2016-11-16 12:04 | PN ---
Teaching Attending Note Name of Resident: Margarito Hanley ATTENDING PHYSICIAN STATEMENT I saw and evaluated the patient. I reviewed the resident's note and discussed the case with the resident. I agree with the resident's findings and plan as documented. SUBJECTIVE:improved OBJECTIVE: mild exp wheeze to forced exhalation no further facial edema Patient was on hyzaar 50mg which was increased to hyzaar 100mg which likely caused the angioedema. Agree with allergy evaluation as an outpatient/ have changed iv steroids to oral/continue bronchodilation No objection to continuing treatment as an outpatient check peak flow today Monica LÓPEZ MD
--- NOTE | 2016-11-16 14:01 | DS ---
Physical Examination Vital Signs: Vital Signs Temperature 97.9 F 11/16/16 10:59 Pulse Rate 59 L 11/16/16 11:00 Respiratory Rate 20 11/16/16 10:59 Blood Pressure 124/81 11/16/16 10:59 O2 Sat by Pulse Oximetry (%) 97 11/16/16 11:00 Labs: CBC, BMP 11/16/16 08:05 11/16/16 08:05 Discharge Summary Reason For Visit: ASTHMA EXACERBATION Current Active Problems Asthma exacerbation (Acute) Condition: Improved - Instructions Diet, Activity, Other Instructions: Please return to the ED with new, persistent, or worsening symptoms. Please follow-up with providers as indicated. Prednisone taper: 40mg by mouth daily x3 days 30mg by mouth daily x3 days 20mg by mouth daily x3 days 10mg by mouth daily x3 days Referrals: Heidi Lamas MD [Primary Care Provider] - (Please stop taking your Norvasc as you feel like it is causing facial swelling. Please follow-up with Dr. Lamas within 2-3 days for further management of your blood pressure) Nicci Mcneill MD [Staff Physician] - (Please follow-up with your credit processor within 1 week for further evaluation of your allergic reactions to hydrochlorothiazide, losartan, and norvasc) Garrett Luna MD [Staff Physician] - (Please follow-up with pulmonary within 1 week for outpatient pulmonary function testing and further management of your asthma) Disposition: HOME - Home Medications Comprehensive Discharge Medication List: Ambulatory Orders Atorvastatin Ca [Lipitor] 20 mg PO DAILY 02/18/16 Esomeprazole Magnesium [Nexium 24Hr] 20 mg PO DAILY 02/18/16 Mometasone/Formoterol [Dulera 100 Mcg/5 Mcg Inhaler] 2 inh IH BID PRN 02/18/16 Albuterol 2.5/Ipratropium 0.5 [Duoneb -] 1 amp NEB Q4H amp 11/16/16 Albuterol Sulfate Inhaler - [Ventolin HFA Inhaler -] 1 - 2 inh PO Q4H PRN #1 inhaler 11/16/16 Prednisone 10 mg PO DAILY #30 tablet 11/16/16
[2016-11-16 15:40] VITALS: BP 124/68; PULSE 68; TEMP 98.1
== END 2016-11-16 16:37 | disposition home or self-care (01) | DRG 203 ==
LOC: JER 12:51 → JERBED 17:13 → OBSVTOIN 17:13 → UNDOADMOB 17:25 → JERBED 17:25 → J5S 20:22
PROVIDERS: ADMIT Internal Medicine; ATTEND Registered Nurse
DX: J45.901 Unspecified asthma with (acute) exacerbation (principal); E78.5 Hyperlipidemia, unspecified; I10 Essential (primary) hypertension; R22.9 Localized swelling, mass and lump, unspecified
CPT/HCPCS: 36415; 71020-TC; 80048; 80053; 83880; 84703; 85025; 85027; 93005; 93010; 94150; 94640; 99283-25; J1644

== ENCOUNTER 2017-12-09 16:29 | Emergency (ER) | payer OTHER ==
[2017-12-09] MEDS ORDERED: KETOROLAC TROMETHAMINE 30 MG/1 ML VIAL IM ONE (16:54)
[2017-12-09] MEDS ORDERED: CYCLOBENZAPRINE HCL 10 MG TABLET (FP) PO ONE (16:54)
[2017-12-09] MEDS ORDERED: KETOROLAC TROMETHAMINE 60 MG/2 ML VIAL ONE (16:58)
--- NOTE | 2017-12-09 16:58 | PDOC ---
History of Present Illness - General Chief Complaint: Back Pain Stated Complaint: BACK PAIN Time Seen by Provider: 12/09/17 16:52 History Source: Patient Exam Limitations: No Limitations - History of Present Illness Pain Location: denies: abdomen, back, chest, head, lower extremity, pelvis, upper extremity Past History - Travel Traveled outside of the country in the last 30 days: No Close contact w/someone who was outside of country & ill: No - Past Medical History Allergies/Adverse Reactions: Allergies Allergy/AdvReac Type Severity Reaction Status Date / Time hydrochlorothiazide Allergy Severe Difficulty Verified 12/09/17 16:38 Breathing losartan Allergy Severe Swelling Verified 12/09/17 16:38 Home Medications: Ambulatory Orders Atorvastatin Ca [Lipitor] 20 mg PO DAILY 02/18/16 Esomeprazole Magnesium [Nexium 24Hr] 20 mg PO DAILY 02/18/16 Mometasone/Formoterol [Dulera 100 Mcg/5 Mcg Inhaler] 2 inh IH BID PRN 02/18/16 Albuterol 2.5/Ipratropium 0.5 [Duoneb -] 1 amp NEB Q4H PRN #90 amp 11/16/16 Albuterol Sulfate Inhaler - [Ventolin HFA Inhaler -] 1 - 2 inh PO Q4H PRN #1 inhaler 11/16/16 Prednisone 10 mg PO DAILY #30 tablet 11/16/16 Cyclobenzaprine HCl [Flexeril 10 mg] 10 mg PO BID 10 Days #20 tablet 12/09/17 Naproxen 375 mg PO BID 10 Days #20 tablet 12/09/17 Asthma: Yes GI Disorders: Yes (hiatal hernia gerd) Disorders: Yes (UTERINE FIBRIODS) Hypercholesterolemia: Yes Thyroid Disease: No - Surgical History Orthopedic Surgery: Yes (Right Elbow) - Suicide/Smoking/Psychosocial Hx Smoking Status: No Smoking History: Never smoked Have you smoked in the past 12 months: No Number of Cigarettes Smoked Daily: 0 Hx Alcohol Use: No Drug/Substance Use Hx: No Substance Use Type: None Hx Substance Use Treatment: No Review of Systems - Review of Systems Is the patient limited [place] proficient: No Constitutional: No: Chills, Fever Respiratory: No: Shortness of Breath Cardiac (ROS): No: Chest Pain, Edema : No: Burning, Dysuria, Frequency, Flank Pain, Hematuria, Incontinence, Pain Musculoskeletal: Yes: Back Pain. No: Joint Swelling, Muscle Pain, Muscle Weakness, Joint Stiffness Neurological: No: Headache, Numbness, Paresthesia, Seizure, Tingling, Tremors, Weakness, Ataxia, Dizziness *Physical Exam - Physical Exam General Appearance: Yes: Nourished Respiratory/Chest: positive: Lungs Clear, Normal Breath Sounds Cardiovascular: positive: Regular Rhythm, Regular Rate, S1, S2 Gastrointestinal/Abdominal: positive: Soft Musculoskeletal: positive: Muscle Spasm, Other (+ paraspinal tenderness noted in LS spine) Extremity: positive: Normal Capillary Refill, Normal Range of Motion Neurologic: positive: neurological surgeon II-XII NML intact, Fully Oriented, Alert Medical Decision Making - Medical Decision Making 12/09/17 16:57 57y/o F with chronic back pain, p/w LBP since today after attempted to bend while praying. Denies B/B Incontience or saddle anesthesia. No UTI sx + paraspinal tenderness in LS spine pain control 12/09/17 18:30 patient reassessed af *DC/Admit/Observation/Transfer Diagnosis at time of Disposition: Back spasm - Discharge Dispostion Disposition: HOME Condition at time of disposition: Stable Decision to Admit order: No - Prescriptions Prescriptions: Cyclobenzaprine HCl [Flexeril 10 mg] 10 mg PO BID 10 Days #20 tablet Naproxen 375 mg PO BID 10 Days #20 tablet - Referrals Referrals: Heidi Lamas MD [Primary Care Provider] - 2 Days - Patient Instructions Printed Discharge Instructions: DI for Back Spasm Additional Instructions: I discussed the physical exam findings, ancillary test results and final diagnoses with the patient. I answered all of the patient's questions. The patient was satisfied with the care received and felt comfortable with the discharge plan and treatment plan. The patient will call their primary care physician within 24 hours to arrange follow-up and will return to the Emergency Department with any new, persistant or worsening symptoms. - Post Discharge Activity
[2017-12-09] MEDS ORDERED: CYCLOBENZAPRINE HCL 10 MG TABLET (FP) ONE (16:59)
[2017-12-09] MEDS ORDERED: KETOROLAC TROMETHAMINE 30 MG/1 ML VIAL ONE (16:59)
== END 2017-12-09 18:41 | disposition home or self-care (01) ==
LOC: JERFT 16:29 → JER 16:29 → JERFT 18:41
PROC: 3E0233Z Introduction of Anti-inflammatory into Muscle, Percutaneous Approach (ICD-10-PCS; principal; 2017-12-09)
DX: M62.830 Muscle spasm of back (principal); X50.9XXA Other and unspecified overexertion or strenuous movements or postures, initial encounter; Y93.89 Activity, other specified; Y92.89 Other specified places as the place of occurrence of the external cause; Y99.8 Other external cause status; J45.909 Unspecified asthma, uncomplicated; K21.9 Gastro-esophageal reflux disease without esophagitis; E78.00 Pure hypercholesterolemia, unspecified
CPT/HCPCS: 99281-25

== ENCOUNTER 2018-04-09 10:18 | Emergency (ER) | payer OTHER ==
[2018-04-09 10:27] VITALS: BP 145/73; PULSE 69; TEMP 98; BMI 26.6
[2018-04-09] MEDS ORDERED: KETOROLAC TROMETHAMINE 60 MG/2 ML VIAL IM ONE (11:10)
[2018-04-09] MEDS ORDERED: KETOROLAC TROMETHAMINE 60 MG/2 ML VIAL ONE (11:13)
--- NOTE | 2018-04-09 11:50 | PDOC ---
History of Present Illness - General Chief Complaint: Back Pain Stated Complaint: LOWER BACK PAIN Time Seen by Provider: 04/09/18 10:54 - History of Present Illness Initial Comments: 04/09/18 11:42 57-year-old female presents for evaluation of lower back pain 2 days. She denies loss of bowel bladder function or systemic symptoms. She states she was bending over to pick something up off the floor felt an immediate twinge in her lower back and has pain since that time. She describes an achy pain in the lower back sometimes sharp exacerbated with activity with posterior lateral left leg radicular symptoms to the level of the hip Past History - Past Medical History Allergies/Adverse Reactions: Allergies Allergy/AdvReac Type Severity Reaction Status Date / Time hydrochlorothiazide Allergy Severe Difficulty Verified 04/09/18 10:26 Breathing losartan Allergy Severe Swelling Verified 04/09/18 10:26 Home Medications: Ambulatory Orders Cyclobenzaprine HCl [Flexeril 10 mg] 10 mg PO HS PRN #10 tablet 04/09/18 Cyclobenzaprine HCl [Flexeril 10 mg] 10 mg PO HS PRN #10 tablet 04/09/18 Methylprednisolone [Medrol Dose French] 4 mg PO ASDIR #21 tablet 04/09/18 Methylprednisolone [Medrol Dose French] 4 mg PO ASDIR #21 tablet 04/09/18 Asthma: Yes COPD: No GI Disorders: Yes (hiatal hernia gerd) Disorders: Yes (UTERINE FIBRIODS) Hypercholesterolemia: Yes Thyroid Disease: No - Surgical History Orthopedic Surgery: Yes (Right Elbow) - Immunization History Immunization Up to Date: Yes - Suicide/Smoking/Psychosocial Hx Smoking Status: No Smoking History: Never smoked Have you smoked in the past 12 months: No Number of Cigarettes Smoked Daily: 0 Hx Alcohol Use: No Drug/Substance Use Hx: No Substance Use Type: None Hx Substance Use Treatment: No Review of Systems - Review of Systems Constitutional: No: Fever Musculoskeletal: Yes: Back Pain Neurological: Yes: See HPI *Physical Exam - Vital Signs Last Vital Signs Temp Pulse Resp BP Pulse Ox 98.0 F 69 18 145/73 98 04/09/18 10:22 04/09/18 10:22 04/09/18 10:22 04/09/18 10:22 04/09/18 10:22 - Physical Exam Comments: 04/09/18 11:43 Lumbar spine skin color and temperature are normal. Range of motion is decreased. No midline tenderness. Moderate right left paralumbar musculature spasm and tenderness. 5 out of 5 strength in bilateral lower extremities without gross sensorimotor deficits. Positive straight related raise test on the left negative on the right. Thighs and calves are soft and nontender. She is neurovascularly intact. Moderate Sedation - Procedure Monitoring Vital Signs: Procedure Monitoring Vital Signs Temperature 98.0 F 04/09/18 10:22 Pulse Rate 69 04/09/18 10:22 Respiratory Rate 18 04/09/18 10:22 Blood Pressure 145/73 04/09/18 10:22 O2 Sat by Pulse Oximetry (%) 98 04/09/18 10:22 ED Treatment Course - Medications Given in the ED: ED Medications Discontinued Medications Generic Name Dose Route Start Last Admin Trade Name Freq PRN Reason Stop Dose Admin Ketorolac Tromethamine 60 mg 04/09/18 11:10 04/09/18 11:18 Toradol Injection - IM 04/09/18 11:11 60 mg ONCE ONE Administration *DC/Admit/Observation/Transfer Diagnosis at time of Disposition: Back spasm, Lumbar radiculopathy - Discharge Dispostion Disposition: HOME Condition at time of disposition: Stable Decision to Admit order: No - Prescriptions Prescriptions: Cyclobenzaprine HCl [Flexeril 10 mg] 10 mg PO HS PRN #10 tablet PRN Reason: Muscle Spasms Methylprednisolone [Medrol Dose French] 4 mg PO ASDIR #21 tablet - Referrals Referrals: Jaycee Aguilar MD [Primary Care Provider] - Sammy Jimenez MD [Staff Physician] - - Patient Instructions Printed Discharge Instructions: Lumbar Radiculopathy, DI for Lumbar Radiculopathy Additional Instructions: Return to the emergency room should symptoms worsen or go unresolved. Do not take any anti-inflammatory such as Advil Motrin or Aleve on the Medrol Dosepak. Follow-up with spine surgery in 2-3 days for further evaluation treatment options. The muscle relaxers one tablet before bedtime and will make you sleepy. If you need additional medication on top of the Medrol Dosepak and the muscle relaxants he may take Tylenol as directed - Post Discharge Activity
== END 2018-04-09 11:59 | disposition home or self-care (01) ==
LOC: JERFT 10:18
PROC: 3E0233Z Introduction of Anti-inflammatory into Muscle, Percutaneous Approach (ICD-10-PCS; principal; 2018-04-09)
DX: M54.16 Radiculopathy, lumbar region (principal); M62.830 Muscle spasm of back
CPT/HCPCS: 99281-25

== ENCOUNTER 2018-04-14 09:51 | Emergency (ER) | payer OTHER ==
[2018-04-14 10:01] VITALS: BP 161/81; PULSE 61; TEMP 98.5; BMI 26.6
[2018-04-14] MEDS ORDERED: KETOROLAC TROMETHAMINE 60 MG/2 ML VIAL IM ONE (10:25)
[2018-04-14] MEDS ORDERED: METHOCARBAMOL 500 MG TABLET PO ONE (10:25)
[2018-04-14] MEDS ORDERED: KETOROLAC TROMETHAMINE 60 MG/2 ML VIAL ONE (10:32)
[2018-04-14] MEDS ORDERED: METHOCARBAMOL 500 MG TABLET ONE (10:33)
--- NOTE | 2018-04-14 10:33 | PDOC ---
History of Present Illness - General History Source: Patient Exam Limitations: Clinical Condition - History of Present Illness Initial Comments: 04/14/18 10:34 Patient with no significant past medical history present with complaint of persistent lower back pain for a week now after bending over while taking a shower week ago. Patient was seen 5 days ago for same symptoms and discharged home on Flexeril and Medrol French for back spasm and report has not help her symptoms. Patient reported back pain to left lower back and radiating to left thigh area. Patient denies any fall or injury to back. Patient denies any other symptoms Timing/Duration: 1 week <Raza Keen - Last Filed: 04/14/18 11:09> <Joel Sanchez - Last Filed: 04/15/18 10:13> - General Chief Complaint: Back Pain Stated Complaint: PAIN Time Seen by Provider: 04/14/18 10:25 Past History - Past Medical History Asthma: Yes COPD: No GI Disorders: Yes (hiatal hernia gerd) Disorders: Yes (UTERINE FIBRIODS) Hypercholesterolemia: Yes Thyroid Disease: No - Surgical History Orthopedic Surgery: Yes (Right Elbow) - Immunization History Immunization Up to Date: Yes - Suicide/Smoking/Psychosocial Hx Smoking Status: No Smoking History: Never smoked Have you smoked in the past 12 months: No Number of Cigarettes Smoked Daily: 0 Hx Alcohol Use: No Drug/Substance Use Hx: No Substance Use Type: None Hx Substance Use Treatment: No <Raza Keen - Last Filed: 04/14/18 11:09> <Joel Sanchez - Last Filed: 04/15/18 10:13> - Past Medical History Allergies/Adverse Reactions: Allergies Allergy/AdvReac Type Severity Reaction Status Date / Time hydrochlorothiazide Allergy Severe Difficulty Verified 04/14/18 09:58 Breathing losartan Allergy Severe Swelling Verified 04/14/18 09:58 Home Medications: Ambulatory Orders Cyclobenzaprine HCl [Flexeril 10 mg] 10 mg PO HS PRN #10 tablet 04/09/18 Methylprednisolone [Medrol Dose French] 4 mg PO ASDIR #21 tablet 04/09/18 Methocarbamol [Robaxin -] 750 mg PO Q8H PRN #20 tablet 04/14/18 Naproxen 500 mg PO BID PRN #20 tablet 04/14/18 Review of Systems - Review of Systems Able to Perform ROS?: Yes Is the patient limited [place] proficient: No Constitutional: No: Weakness HEENTM: No: Symptoms Reported Respiratory: No: Symptoms reported Cardiac (ROS): No: Symptoms Reported ABD/GI: No: Nausea, Vomiting : No: Burning, Dysuria, Frequency, Flank Pain, Urgency Musculoskeletal: Yes: See HPI, Back Pain (left lower back), Muscle Pain (left lower back) Neurological: No: Numbness, Paresthesia, Dizziness All Other Systems: Reviewed and Negative <Raza Keen - Last Filed: 04/14/18 11:09> *Physical Exam - Vital Signs Last Vital Signs Temp Pulse Resp BP Pulse Ox 98.5 F 61 17 161/81 99 04/14/18 09:59 04/14/18 09:59 04/14/18 09:59 04/14/18 09:59 04/14/18 09:59 - Physical Exam Comments: 04/14/18 10:36 GENERAL: Well developed, well nourished. Awake and alert. moderate acute distress. CARDIOVASCULAR: Regular rate and rhythm. No murmurs, rubs, or gallops. PULMONARY: No evidence of respiratory distress. Lungs clear to auscultation bilaterally. No wheezing, rales or rhonchi. ABDOMINAL: Soft. Non-tender. Non-distended. No rebound or guarding. No organomegaly. Normoactive bowel sounds MUSCULOSKELETAL : moderate tenderness over posterior paravertebral muscle lower lumbar spine of L5-S2 on left side.Back pain worse with external rotation of hip to the left and flexion of the hip.No bony deformities EXTREMITIES: No cyanosis. No clubbing. No edema. No calf tenderness. SKIN: Warm and dry. Normal capillary refill. NEUROLOGICAL: Alert, awake, appropriate. No motor deficits in the lower extremities. Gait is normal without ataxia. PSYCHIATRIC: Cooperative. Good eye contact. Appropriate mood and affect. General Appearance: Yes: Nourished, Appropriately Dressed, Mild Distress <Raza Keen - Last Filed: 04/14/18 11:09> - Vital Signs Last Vital Signs Temp Pulse Resp BP Pulse Ox 98.5 F 61 17 161/81 99 04/14/18 09:59 04/14/18 09:59 04/14/18 09:59 04/14/18 09:59 04/14/18 09:59 <Laura,Joel - Last Filed: 04/15/18 10:13> Moderate Sedation - Procedure Monitoring Vital Signs: Procedure Monitoring Vital Signs Temperature 98.5 F 04/14/18 09:59 Pulse Rate 61 04/14/18 09:59 Respiratory Rate 17 04/14/18 09:59 Blood Pressure 161/81 04/14/18 09:59 O2 Sat by Pulse Oximetry (%) 99 04/14/18 09:59 <Raza Keen - Last Filed: 04/14/18 11:09> - Procedure Monitoring Vital Signs: Procedure Monitoring Vital Signs Temperature 98.5 F 04/14/18 09:59 Pulse Rate 61 04/14/18 09:59 Respiratory Rate 17 04/14/18 09:59 Blood Pressure 161/81 04/14/18 09:59 O2 Sat by Pulse Oximetry (%) 99 04/14/18 09:59 <Joel Sanchez - Last Filed: 04/15/18 10:13> ED Treatment Course - RADIOLOGY Radiology Studies Ordered: Category Date Time Status SPINE-LUMBAR SACRAL [RAD] Stat Radiology 04/14/18 10:26 Ordered <Raza Keen - Last Filed: 04/14/18 11:09> - Medications Given in the ED: ED Medications Discontinued Medications Generic Name Dose Route Start Last Admin Trade Name Enriqueta PRN Reason Stop Dose Admin Ketorolac Tromethamine 60 mg 04/14/18 10:25 04/14/18 10:38 Toradol Injection - IM 04/14/18 10:26 60 mg ONCE ONE Administration Methocarbamol 500 mg 04/14/18 10:25 04/14/18 10:38 Robaxin - PO 04/14/18 10:26 500 mg ONCE ONE Administration <Joel Sanchez - Last Filed: 04/15/18 10:13> Medical Decision Making - Medical Decision Making 04/14/18 10:38 Patient with no significant past medical history present with complaint of persistent lower back pain for a week now after bending over while taking a shower week ago. Patient was seen 5 days ago for same symptoms and discharged home on Flexeril and Medrol French for back spasm and report has not help her symptoms. Patient reported back pain to left lower back and radiating to left thigh area. Exam significant for moderate tenderness over posterior paravertebral muscle lower lumbar spine of L5-S2 on left side.Back pain worse with external rotation of hip to the left and flexion of the hip. Toradol 60 mg IM ordered for pain. Robaxin 500 mg by mouth ordered for muscle spasm. X-ray of lumbosacral spine ordered. Treat based on imaging results 04/14/18 11:07 X-ray of lumbosacral shows no acute fracture or dislocation. X-ray shows straightening of the lumbar spine consistent with muscle spasm. Patient is stable for discharge on naproxen for pain and Robaxin for muscle spasm with orthopedist follow-up. <Raza Keen - Last Filed: 04/14/18 11:09> - Medical Decision Making The patient was seen and evaluated in conjunction with JUAN CARLOS Keen under my direct supervision, ancillary studies were reviewed. I agree with the plan as outlined by JUAN CARLOS Keen . . <Joel Sanchez - Last Filed: 04/15/18 10:13> *DC/Admit/Observation/Transfer - Discharge Dispostion Decision to Admit order: No <Raza Keen - Last Filed: 04/14/18 11:09> <Joel Sanchez - Last Filed: 04/15/18 10:13> Diagnosis at time of Disposition: Lumbago with sciatica, left side Qualifiers: Chronicity: acute Back pain laterality: left Qualified Code(s): M54.42 - Lumbago with sciatica, left side - Discharge Dispostion Disposition: HOME Condition at time of disposition: Stable - Prescriptions Prescriptions: Methocarbamol [Robaxin -] 750 mg PO Q8H PRN #20 tablet PRN Reason: Back Pain Naproxen 500 mg PO BID PRN #20 tablet PRN Reason: Back Pain - Referrals Referrals: Emile Harris DO [Staff Physician] - - Patient Instructions Printed Discharge Instructions: DI for Back Pain With Sciatica Additional Instructions: Take medication as prescribed as needed for pain. Use home back brace daily until symptoms resolve. Apply heat therapy 2-3 times a day for 5-10 minutes to lower back as needed for pain. Follow-up referred orthopedics - Post Discharge Activity
== END 2018-04-14 11:10 | disposition home or self-care (01) ==
LOC: JERFT 09:51
PROC: 3E0233Z Introduction of Anti-inflammatory into Muscle, Percutaneous Approach (ICD-10-PCS; principal; 2018-04-14)
DX: M54.42 Lumbago with sciatica, left side (principal); X50.1XXA Overexertion from prolonged static or awkward postures, initial encounter; Y93.E1 Activity, personal bathing and showering; Y92.012 Bathroom of single-family (private) house as the place of occurrence of the external cause; Y99.8 Other external cause status
CPT/HCPCS: 72100-TC-FY; 99281-25

== ENCOUNTER 2019-03-18 06:19 | Emergency (ER) | payer OTHER ==
[2019-03-18 06:33] VITALS: BMI 27.4
--- NOTE | 2019-03-18 07:09 | PDOC ---
History of Present Illness - General Chief Complaint: Asthma Stated Complaint: ASTHMA Time Seen by Provider: 03/18/19 07:01 - History of Present Illness Initial Comments: 03/18/19 07:08 58 yo F PMH asthma, HTN, hyperlipidemia, p/w SOB. States that it has been present since Monday of last week, with gradual worsening over time. Does state that she has been taking care of her son who had the flu. Complains of URI symptoms a few days ago which have since resolved. States that her symptoms feel identical in quality to her asthma exacerbations in the past, albeit more intense. Has been intubated once in . Has 3-4 ED visits for asthma per year and has been hospitalized multiple times in the past. Specifically denies CP, LION, N/V, F/C, constipation/diarrhea, abdominal pain. Past History - Past Medical History Allergies/Adverse Reactions: Allergies Allergy/AdvReac Type Severity Reaction Status Date / Time hydrochlorothiazide Allergy Severe Difficulty Verified 03/18/19 06:33 Breathing losartan Allergy Severe Swelling Verified 03/18/19 06:33 Home Medications: Ambulatory Orders Cyclobenzaprine HCl [Flexeril 10 mg] 10 mg PO HS PRN #10 tablet 04/09/18 Methylprednisolone [Medrol Dose French] 4 mg PO ASDIR #21 tablet 04/09/18 Methocarbamol [Robaxin -] 750 mg PO Q8H PRN #20 tablet 04/14/18 Naproxen 500 mg PO BID PRN #20 tablet 04/14/18 predniSONE [Deltasone -] 60 mg PO DAILY #7 tablet 03/18/19 Asthma: Yes COPD: No GI Disorders: Yes (hiatal hernia gerd) Disorders: Yes (UTERINE FIBRIODS) Hypercholesterolemia: Yes Thyroid Disease: No - Surgical History Orthopedic Surgery: Yes (Right Elbow) - Immunization History Immunization Up to Date: Yes - Psycho Social/Smoking Cessation Hx Smoking Status: No Smoking History: Never smoked Have you smoked in the past 12 months: No Number of Cigarettes Smoked Daily: 0 Hx Alcohol Use: No Drug/Substance Use Hx: No Substance Use Type: None Hx Substance Use Treatment: No Review of Systems - Review of Systems Comments:: 03/18/19 11:48 GENERAL/CONSTITUTIONAL: No fever or chills. No weakness. HEAD, EYES, EARS, NOSE AND THROAT: No change in vision. No ear pain or discharge. No sore throat. CARDIOVASCULAR: No chest pain or shortness of breath. RESPIRATORY: No cough or hemoptysis. Significant wheezing. GASTROINTESTINAL: No nausea, vomiting, diarrhea or constipation. GENITOURINARY: No dysuria, frequency, or change in urination. MUSCULOSKELETAL: No joint or muscle swelling or pain. No neck or back pain. SKIN: No rash NEUROLOGIC: No headache, vertigo, loss of consciousness, or change in strength/ sensation. ENDOCRINE: No increased thirst. No abnormal weight change. HEMATOLOGIC/LYMPHATIC: No anemia, easy bleeding, or history of blood clots. ALLERGIC/IMMUNOLOGIC: No hives or skin allergy *Physical Exam - Vital Signs Last Vital Signs Temp Pulse Resp BP Pulse Ox 98.1 F 74 22 H 164/92 96 03/18/19 06:20 03/18/19 06:20 03/18/19 06:20 03/18/19 06:20 03/18/19 06:20 - Physical Exam 03/18/19 11:49 Gen: well-developed, well-nourished, in moderate distress Neuro: AAOX4, CN II-XII intact, FTN intact, EOMI, PERRLA, 5/5 strength, SILT HEENT: atraumatic, normocephalic, dry mucous membranes Neck: trachea midline, supple CV: regular rate, regular rhythm, no murmurs, rubs, or gallops Pulm: diffuse expiratory wheezing Abd: soft, non-distended, non-tender MSK: full ROM, intact pulses Extr: no edema, no deformities Skin: warm, dry Medical Decision Making - Medical Decision Making 03/18/19 9:46 Patient concerning for possible asthma exacerbation vs ACS. - EKG - CXR - Duonebs X3 - Solu-medrol 125mg - Mag 1g 03/18/19 11:40 Patient reassessed. Feeling much better than previous. Walked her, still feels subjectively SOB after exertion but sat'ing 96%. CXR without acute pathology. EKG with sinus arrhythmia at 61 bpm. Will dc with steroid course. Discharge - Discharge Information Problems reviewed: Yes Clinical Impression/Diagnosis: Asthma exacerbation Condition: Fair - Additional Discharge Information Prescriptions: predniSONE [Deltasone -] 60 mg PO DAILY #7 tablet - Follow up/Referral Referrals: Heidi Lamas MD [Primary Care Provider] - - Patient Discharge Instructions Patient Printed Discharge Instructions: Asthma -- Adult Additional Instructions: You were seen with an asthma exacerbation. This improved with medication. Please take your inhalers as prescribed. Also, please take the prednisone we sent to your pharmacy. This is 60mg to be taken once a day for one week. Follow up with your primary care doctor within one week. Return to the ED if you develop worsening symptoms. - Post Discharge Activity
[2019-03-18] MEDS ORDERED: ALBUTEROL SO4 2.5/IPRATROPIUM 0.5 INH SOL 3 ML VIAL.NEB. NEB ONE ×2 (07:14→07:29)
[2019-03-18] MEDS ORDERED: MAGNESIUM SULF 50% (8.12 MEQ/2 ML-1 GM VIAL) IVPB ONE (08:36)
[2019-03-18] MEDS ORDERED: methylPREDNISolone NA SUCC 125 MG/2 ML VIAL IVPB ONE (08:36)
[2019-03-18] MEDS ORDERED: MAGNESIUM 1GM/D5W - 1 GM/100 ML IVPB IVPB ONE (08:42)
[2019-03-18] MEDS ORDERED: methylPREDNISolone NA SUCC 125 MG/2 ML VIAL ONE (08:42)
[2019-03-18 10:19] VITALS: BP 130/71; PULSE 65; TEMP 97.8
--- NOTE | 2019-03-18 11:27 | PDOC ---
Attending Attestation - Resident Resident Name: Janki Beckford - ED Attending Attestation I have performed the following: I have examined & evaluated the patient, The case was reviewed & discussed with the resident, I agree w/resident's findings & plan - HPI HPI: 03/18/19 11:24 58-year-old female with history of moderate intermittent asthma presents with progressive symptoms over the past week in the setting of URI. Patient with cough, chest congestion, wheezing despite albuterol at home, has had URI symptoms of nasal congestion and rhinorrhea after sick contact with her grandson , tested flu negative at urgent care 4 days ago, presents now for worsening asthma exacerbation symptoms. No exertional chest pain, but experiences dyspnea. No fevers or chills. - Physicial Exam PE: 03/18/19 11:25 Tachypnea, slight tachycardia, O2 sat normal Alert, still slightly tachypneic seated in stretcher, but able to speak sentences and appears more comfortable Oropharynx clear, neck supple, no stridor Heart is regular without murmurs Moderate to good air entry bilaterally, no focally decreased breath sounds, positive inspiratory and expiratory wheezing, slightly prolonged expiration Abdomen benign No edema or calf tenderness - Critical Care Time Total Critical Care Time: 70 Critical Care Statement: The care of this patient involved high complexity decision making to prevent further life threatening deterioration of the patient 's condition and/or to evaluate & treat vital organ system(s) failure or risk of failure. - Medical Decision Making 03/18/19 11:25 58-year-old female presents with moderate to severe acute asthma exacerbation without hypoxic respiratory failure. EKG performed and nonischemic, presentation likely precipitated by viral URI over the last week, no evidence for ACS. Seen immediately upon arrival, nebulizer x4 initiated, also given magnesium and IV steroids CXR clear close monitoring, reassess. Will need exertion trial and o2 monitoring. 03/18/19 11:47 feels much better. post-ambulation o2 97% on room air. feels comfortable going home. will d/c on steroids/nebs, understands strict return precautions. Heart Score/ECG Review #1 ECG reviewed & interpreted by me at: 09:57 General ECG Interpretation: Sinus Rhythm, Normal Rate (61), Normal Intervals ( qtc 418), No acute ischemic changes
--- NOTE | 2019-03-18 11:34 | EKG ---
Test Reason : Blood Pressure : / mmHG Vent. Rate : 061 BPM Atrial Rate : 061 BPM P-R Int : 114 ms QRS Dur : 086 ms QT Int : 416 ms P-R-T Axes : 043 024 022 degrees QTc Int : 418 ms NORMAL SINUS RHYTHM WITH SINUS ARRHYTHMIA POSSIBLE LEFT ATRIAL ENLARGEMENT BORDERLINE ECG WHEN COMPARED WITH ECG OF 14-NOV-2016 14:58, NO SIGNIFICANT CHANGE WAS FOUND Confirmed by DENA YANG MD ([id number]) on 03/18/2019 11:33:35 AM Referred By: Confirmed By:DENA YANG MD
== END 2019-03-18 12:22 | disposition home or self-care (01) ==
LOC: JER 06:19
PROC: 3E0F7GC Introduction of Other Therapeutic Substance into Respiratory Tract, Via Natural or Artificial Opening (ICD-10-PCS; principal; 2019-03-18)
PROC: 3E033GC Introduction of Other Therapeutic Substance into Peripheral Vein, Percutaneous Approach (ICD-10-PCS; 2019-03-18)
PROC: 3E0333Z Introduction of Anti-inflammatory into Peripheral Vein, Percutaneous Approach (ICD-10-PCS; 2019-03-18)
DX: J45.901 Unspecified asthma with (acute) exacerbation (principal); I10 Essential (primary) hypertension; E78.5 Hyperlipidemia, unspecified
CPT/HCPCS: 71045-TC-FY; 93005; 93010; 99283-25

== ENCOUNTER 2019-11-21 09:58 | Inpatient (IN) | payer OTHER ==
[2019-11-21] MEDS ORDERED: ONDANSETRON 4 MG/2 ML VIAL IVPUSH ONE ×2 (10:27→18:09)
[2019-11-21] MEDS ORDERED: ACETAMINOPHEN 1000 MG/100 ML VIAL (NON FORMULARY) IVPB ONE (10:27)
[2019-11-21] MEDS ORDERED: SODIUM CHLORIDE 1,000 ML IV STA ×3 (10:27→18:10)
--- NOTE | 2019-11-21 10:27 | PDOC ---
History of Present Illness - General Chief Complaint: Nausea/Vomiting Stated Complaint: FOOD POISONING Time Seen by Provider: 11/21/19 10:19 History Source: Patient Exam Limitations: No Limitations Past History - Travel History Traveled outside of the country in the last 30 days: No Close contact w/someone who was outside of country & ill: No - Medical History Allergies/Adverse Reactions: Allergies Allergy/AdvReac Type Severity Reaction Status Date / Time hydrochlorothiazide Allergy Severe Difficulty Verified 11/21/19 09:59 Breathing losartan Allergy Severe Swelling Verified 11/21/19 09:59 Home Medications: Ambulatory Orders Cyclobenzaprine HCl [Flexeril 10 mg] 10 mg PO HS PRN #10 tablet 04/09/18 Methylprednisolone [Medrol Dose French] 4 mg PO ASDIR #21 tablet 04/09/18 Methocarbamol [Robaxin -] 750 mg PO Q8H PRN #20 tablet 04/14/18 Naproxen 500 mg PO BID PRN #20 tablet 04/14/18 predniSONE [Deltasone -] 60 mg PO DAILY #7 tablet 03/18/19 Asthma: Yes COPD: No GI Disorders: Yes (hiatal hernia gerd) Disorders: Yes (UTERINE FIBRIODS) Hypercholesterolemia: Yes Thyroid Disease: No - Surgical History Orthopedic Surgery: Yes (Right Elbow) - Immunization History Immunization Up to Date: Yes - Psycho-Social/Smoking History Smoking Status: No Smoking History: Never smoked Have you smoked in the past 12 months: No Number of Cigarettes Smoked Daily: 0 - Substance Abuse Hx (Audit-C & DAST Scrn) How often the patient has a drink containing alcohol: Never Score: In Men: 4 or > Positive; In Women: 3 or > Positive: 0 Screen Result (Pos requires Nsg. Audit-10AR): Negative Review of Systems - Review of Systems Able to Perform ROS?: Yes Comments:: 11/21/19 18:11 CONSTITUTIONAL: Absent: fever, chills, diaphoresis, generalized weakness, malaise, loss of appetite HEENT: Absent: rhinorrhea, nasal congestion, throat pain, throat swelling, difficulty swallowing, mouth swelling, ear pain, eye pain, visual Changes CARDIOVASCULAR: Absent: chest pain, loss of consciousness, palpitations, irregular heart rate, peripheral edema RESPIRATORY: Absent: cough, shortness of breath, dyspnea with exertion, orthopnea, wheezing, stridor, hemoptysis GASTROINTESTINAL: Present: Abdominal pain, nausea, vomiting Absent: abdominal distension, diarrhea, constipation, melena, hematochezia GENITOURINARY: Absent: dysuria, frequency, urgency, hesitancy, hematuria, flank pain, genital pain MUSCULOSKELETAL: Absent: myalgia, arthralgia, joint swelling SKIN: Absent: rash, itching, pallor HEMATOLOGIC/IMMUNOLOGIC: Absent: easy bleeding, easy bruising, lymphadenopathy, frequent infections ENDOCRINE: Absent: unexplained weight gain, unexplained weight loss, heat intolerance, cold intolerance NEUROLOGIC: Absent: headache, focal weakness or paresthesias, dizziness, unsteady gait, seizure, mental status changes, bladder or bowel incontinence PSYCHIATRIC: Absent: anxiety, depression, suicidal or homicidal ideation, hallucinations. Is the patient limited Welsh proficient: No *Physical Exam - Vital Signs Last Vital Signs Temp Pulse Resp BP Pulse Ox 98.5 F 79 18 197/81 H 99 11/21/19 10:00 11/21/19 10:00 11/21/19 10:00 11/21/19 10:11/21/19 10:00 - Physical Exam 11/21/19 18:12 GENERAL: Well developed, well nourished. Awake and alert. No acute distress. HEENT: Normocephalic, atraumatic. PERRLA, EOMI. No conjunctival pallor. Sclera are non-icteric. Moist mucous membranes. Oropharynx is clear. NECK: Supple. Full ROM. No JVD. Carotid pulses 2+ and symmetric, without bruits. No thyromegaly. No lymphadenopathy. CARDIOVASCULAR: Regular rate and rhythm. No murmurs, rubs, or gallops. Distal pulses are 2+ and symmetric. PULMONARY: No evidence of respiratory distress. Lungs clear to auscultation bilaterally. No wheezing, rales or rhonchi. ABDOMINAL: Diffuse abdominal tenderness, unable to perform good initial exam as patient is grossly uncomfortable and guarding. Soft. Non-distended. No rebound. No organomegaly. Normoactive bowel sounds. MUSCULOSKELETAL Normal range of motion at all joints. No bony deformities or tenderness. No CVA tenderness. EXTREMITIES: No cyanosis. No clubbing. No edema. No calf tenderness. SKIN: Warm and dry. Normal capillary refill. No rashes. No jaundice. NEUROLOGICAL: Alert, awake, appropriate. Cranial nerves 2-12 intact. No deficits to light touch and temperature in face, upper extremities and lower extremities. No motor deficits in the in face, upper extremities and lower extremities. Normoreflexic in the upper and lower extremities. Normal speech. Toes are down-going bilaterally. Gait is normal without ataxia. PSYCHIATRIC: Cooperative. Good eye contact. Appropriate mood and affect. ED Treatment Course - LABORATORY CBC & Chemistry Diagram: 11/21/19 11:15 11/21/19 11:15 Medical Decision Making - Medical Decision Making 11/21/19 18:22 Patient is a 59-year-old female past medical history of hyper tension hyperlipidemia, asthma, presents to the ER today for nausea vomiting, diarrhea and abdominal pain starting yesterday. She states that her pain started immedi ately after eating takeout beans, rice and stew chicken. She states that she woke up this morning at 3:00 with vomiting and diarrhea. Denies surgical history. She has not taken any medication for her pain. Denies fevers, chills, chest pain, difficulty breathing and urinary symptoms. A/P: Abdominal pain On initial exam patient has diffuse abdominal tenderness without focal findings. Patient is also actively vomiting in vertical. Differential diagnosis includes but is not limited to gastroenteritis, gastritis, pancreatitis, appendicitis, cholecystitis, UTI, Santino, kidney stone. Basic labs, urine sent Abdomen reevaluated after [place], offer meds. Patient now with focal right lower quadrant tenderness. High suspicion for appendicitis, CT ordered Dr. Gilmore notified by radiology that patient is positive for appendicitis. We will page Dr. Cuevas who is plumbing engineering draftsperson for surgery and admit to the hospitalist. Dede ordered for antibiotics 11/21/19 20:[address] Cuevas who states he will take pt tomorrow to the OR Case discussed with Dr. Patel; admit to Dr. Joyce Merlos Discharge - Discharge Information Problems reviewed: Yes Clinical Impression/Diagnosis: Appendicitis Qualifiers: Appendicitis type: acute appendicitis Acute appendicitis type: unspecified acute appendicitis type Qualified Code(s): K35.80 - Unspecified acute appendicitis Condition: Stable - Admission Yes - Follow up/Referral - Patient Discharge Instructions - Post Discharge Activity
[2019-11-21] MEDS ORDERED: FAMOTIDINE 20 MG/50 ML IVPB 20 MG/50 ML MG IVPB ONE ×2 (10:28→10:51)
[2019-11-21] MEDS ORDERED: ACETAMINOPHEN INJECTION 100 ML IVPB ONE (10:51)
[2019-11-21 11:46] LABS: BASO % 0.3 % (0-2.0); EOS % 1.3 % (0-4.5); HEMATOCRIT 46.4 % (32.4-45.2); HEMOGLOBIN 15.4 GM/dL (10.7-15.3); MCH 29.1 pg (25.7-33.7); MCHC 33.3 g/dl (32.0-36.0); MEAN CELL VOLUME 87.4 fl (80-96); MEAN PLT VOLUME 11.8 fl (7.5-11.1); MONO % 5.3 % (3.8-10.2); NEUT % 76.1 % (42.8-82.8); PLATELET COUNT 226 K/MM3 (134-434); RDW 13.6 % (11.6-15.6); WHITE BLOOD COUNT 14.1 K/mm3 (4.0-10.0)
[2019-11-21 11:47] LABS: INR 0.96 (0.83-1.09); PROTHROMBIN TIME (PATIENT) 11.3 SEC (9.7-13.0)
[2019-11-21 12:05] LABS: ALBUMIN 3.9 g/dl (3.4-5.0); BILIRUBIN,TOTAL 0.7 mg/dL (0.2-1); BLOOD UREA NITROGEN 13.8 mg/dL (7-18); CALCIUM 9.3 mg/dL (8.5-10.1); CREATININE 0.7 mg/dL (0.55-1.3); TOT PROT 7.8 g/dl (6.4-8.2)
[2019-11-21] MEDS ORDERED: METOCLOPRAMIDE HCL INJECTION 10 MG/2 ML VIAL IVPB ONE (12:55)
[2019-11-21] MEDS ORDERED: METOCLOPRAMIDE HCL INJECTION 10 MG/2 ML VIAL ONE (13:16)
[2019-11-21 13:40] LABS: URINE APPEARANCE CLEAR; URINE BILIRUBIN NEGATIVE (NEGATIVE); URINE COLOR YELLOW; URINE GLUCOSE (UA) NEGATIVE (NEGATIVE); URINE KETONE NEGATIVE (NEGATIVE); URINE LEUK ESTERASE NEGATIVE (NEGATIVE); URINE NITRITE NEGATIVE (NEGATIVE); URINE PROTEIN NEGATIVE (NEGATIVE); URINE UROBILINOGEN 0.2 mg/dL (0.2-1.0)
[2019-11-21] MEDS ORDERED: morphine CARPU-JECT 4 MG/1 ML DISP.SYRIN IVPUSH ONE (18:10)
[2019-11-21] MEDS ORDERED: PIPERACILLIN/TAZOB 3.375 GM 3.375 GM in DEXTROSE 5%-WATER - 50 ML IVPB ONE (18:10)
[2019-11-21] MEDS ORDERED: PIPERACILLIN/TAZOB 3.375 GM 3.375 GM/50 ML BAG IVPB ONE (18:42)
[2019-11-21] MEDS ORDERED: morphine SULFATE 4 MG/ML VIAL ONE (18:42)
--- NOTE | 2019-11-21 20:08 | PN ---
Teaching Attending Note Name of Resident: Arnulfo Patel ATTENDING PHYSICIAN STATEMENT I saw and evaluated the patient. I reviewed the resident's note and discussed the case with the resident. I agree with the resident's findings and plan as documented. SUBJECTIVE: 59yoF with history of HLD, asthma, and uterine fibroids s/p hysterectomy who presents with acute onset abdominal pain, vomiting, and diarrhea. Patient reports she had been in her usual state of health until yesterday after lunch when she developed diffuse abdominal pain, distention, and nausea. She initially attributed this to food poisoning and went to bed but awoke early in the morning with severe abdominal pain, nausea, vomiting, and loose stools. She also developed shaking chills. Symptoms continued throughout the morning so she presented to the ED. Patient was afebrile but hypertensive to 197/81 on arrival to the ED. Labs notable for WBC 14.1. CT abdomen/pelvis showed distended appendix with suspected appendicolith, wall thickening, and adjacent fat stranding, consistent with appendicitis. ED consulted surgery, Dr. Cuevas. Patient received Zosyn and is admitted for further management. Patient denies any cardiac history, does not have chest pain or shortness of breath with exertion. Asthma is well controlled with daily inhaler. Able to ambulate up stairs without difficulty. ROS: (+) nausea, vomiting, diarrhea, abdominal pain, chills (-) melena, hematochezia, hematemesis OBJECTIVE: Vital Signs - 24 hr 11/21/19 11/21/19 10:00 18:00 Temperature 98.5 F 98.1 F Pulse Rate 79 Pulse Rate [ 82 Left Radial] Respiratory 18 18 Rate Blood Pressure 197/81 H Blood Pressure 160/75 [Right Arm] O2 Sat by Pulse 99 99 Oximetry (%) Exam: Gen: Tired appearing but in no acute distress HEENT: NC/AT CV: RRR, no MRG appreciated Resp: Unlabored, CTAB Abd: Mildly distended but soft, tender to palpation lower quadrants without rebound/guarding. Hypoactive bowel sounds throughout Ext: No peripheral edema Neuro: CN II-XII grossly intact. Laboratory Results - last 24 hr 11/21/19 11/21/19 11/21/19 11:15 11:15 11:15 WBC 14.1 H RBC 5.30 H Hgb 15.4 H Hct 46.4 H MCV 87.4 MCH 29.1 MCHC 33.3 RDW 13.6 Plt Count 226 MPV 11.8 H Absolute Neuts (auto) 10.7 H Neutrophils % 76.1 Lymphocytes % 17.0 D Monocytes % 5.3 Eosinophils % 1.3 D Basophils % 0.3 Nucleated RBC % 0 PT with INR 11.30 INR 0.96 Sodium 141 Potassium 4.0 Chloride 109 H Carbon Dioxide 24 Anion Gap 9 BUN 13.8 Creatinine 0.7 Est GFR (CKD-EPI)AfAm 109.91 Est GFR (CKD-EPI)NonAf 94.84 Random Glucose 133 H Calcium 9.3 Total Bilirubin 0.7 AST 16 ALT 29 Alkaline Phosphatase 118 H Total Protein 7.8 Albumin 3.9 Lipase 105 Urine Color Urine Appearance Urine pH Ur Specific [place] Urine Protein Urine Glucose (UA) Urine Ketones Urine Blood Urine Nitrite Urine Bilirubin Urine Urobilinogen Ur Leukocyte Esterase 11/21/19 12:40 WBC RBC Hgb Hct MCV MCH MCHC RDW Plt Count MPV Absolute Neuts (auto) Neutrophils % Lymphocytes % Monocytes % Eosinophils % Basophils % Nucleated RBC % PT with INR INR Sodium Potassium Chloride Carbon Dioxide Anion Gap BUN Creatinine Est GFR (CKD-EPI)AfAm Est GFR (CKD-EPI)NonAf Random Glucose Calcium Total Bilirubin AST ALT Alkaline Phosphatase Total Protein Albumin Lipase Urine Color Yellow Urine Appearance Clear Urine pH 7.0 Ur Specific [place] 1.019 Urine Protein Negative Urine Glucose (UA) Negative Urine Ketones Negative Urine Blood Negative Urine Nitrite Negative Urine Bilirubin Negative Urine Urobilinogen 0.2 Ur Leukocyte Esterase Negative Imaging, EKG reviewed in chart ASSESSMENT AND PLAN: 59yoF with history of HTN, HLD, and asthma who presents with acute onset a bdominal pain, vomiting, and diarrhea admitted with acute appendicitis. Acute appendicitis Lower abdominal pain with CT findings consistent with acute appendicitis Non-toxic appearing, pain controlled s/p morphine RCRI = 0, low risk for moderate risk surgery. No further testing required, medically cleared for surgery s/p Zosyn in ED - NPO - Maintenance fluids overnight - continue antibiotic coverage with ceftriaxone/Flagyl pending possible appendectomy - Morphine PRN for mod-severe pain - surgical consult appreciated Chronic, stable: Asthma: No current exacerbation. Continue Symbicort, albuterol PRN DVT ppx: SCD pending possible procedure
[2019-11-21] MEDS ORDERED: MORPHINE SULFATE 2 MG/ML VIAL IVPUSH PRN (21:00)
[2019-11-21] MEDS ORDERED: SODIUM CHLORIDE 1,000 ML IV SCH (21:00)
[2019-11-22] MEDS ORDERED: CEFTRIAXONE 2 GM/100 ML BAG IVPB ONE (01:10)
[2019-11-22] MEDS: morphine SULFATE 4 MG/ML VIAL IVPUSH PRN ×2 (01:17→09:13)
[2019-11-22] MEDS ORDERED: morphine SULFATE 4 MG/ML VIAL ONE (01:17)
[2019-11-22] MEDS ORDERED: CEFTRIAXONE 2 GM in DEXTROSE 5%-WATER - 50 ML IVPB SCH (02:00)
[2019-11-22] MEDS ORDERED: PIPERACILLIN/TAZOB 3.375 GM 3.375 GM in DEXTROSE 5%-WATER - 50 ML IVPB SCH (02:00)
[2019-11-22] MEDS ORDERED: DEXTROSE 5%-WATER - 50 ML IVPB ONE ×2 (04:05→09:07)
[2019-11-22] MEDS ORDERED: ALBUTEROL SO4 HFA INHALER IH PRN ×2 (04:35→13:03)
--- NOTE | 2019-11-22 04:42 | HP ---
CHIEF COMPLAINT: severe abd pain PCP: HISTORY OF PRESENT ILLNESS: 59F w/ pmh of HDL, asthma, hiatal hernia BIBhusband for severe abdominal pain. First noted one day prior; starting at 1pm, while eating lunch. Pt states felt "bloated", then points to periumbilical area. Pain resolved then recurred in the evening at 0100 with pain and vomiting(thin, phelgm-like, yellow). Returned to sleep to only have yet another recurrence at ~0900 on day of admission. States that pain now vague RLQ, radiated to Right back. Improved after ED medications. Was almost discharged from ED but pt insisted on CT A/P. Has appetite but afraid to have continued vomiting. Has chills, loose stools. No sick contacts. Llast asthma exacerbation was in June, which prompted steroids. LMP 49. Former occupation in [employer] ER course was notable for: -Tmax 98.5, 79, 197/81 --> 160/75 -WBC 14.1 -CT A/P: distended appendix w/ wall thickening, adjacent fat stranding. No free pelvic fluid -EM resident contacted [facility] -NS 3L, zofran x2, relgan, morphine 4mg, pepcid, ofirmev, zosyn Recent Travel: none PAST MEDICAL HISTORY: as above PAST SURGICAL HISTORY: -right cervical spine sx -hysterectomy -tuboligation -tummy tuck Social History: Smoking: denies Alcohol: denies Drugs: denies Allergies hydrochlorothiazide Allergy (Severe, Verified 11/21/19 09:59) Difficulty Breathing Angioedema losartan Allergy (Severe, Verified 11/21/19 09:59) Swelling angioedema HOME MEDICATIONS: Home Medications Medication Instructions Recorded Cyclobenzaprine HCl [Flexeril 10 10 mg PO HS PRN #10 tablet 04/09/18 mg] Methylprednisolone [Medrol Dose 4 mg PO ASDIR #21 tablet 04/09/18 French] Methocarbamol [Robaxin -] 750 mg PO Q8H PRN #20 tablet 04/14/18 Naproxen 500 mg PO BID PRN #20 tablet 04/14/18 predniSONE [Deltasone -] 60 mg PO DAILY #7 tablet 03/18/19 REVIEW OF SYSTEMS CONSTITUTIONAL: chills Absent: fever, diaphoresis, generalized weakness, malaise, loss of appetite, weight change HEENT: Absent: rhinorrhea, nasal congestion, throat pain, throat swelling, difficulty swallowing, mouth swelling, ear pain, eye pain, visual changes CARDIOVASCULAR: Absent: chest pain, syncope, palpitations, irregular heart rate, lightheadedness, peripheral edema RESPIRATORY: Absent: cough, shortness of breath, dyspnea with exertion, orthopnea, wheezing, stridor, hemoptysis GASTROINTESTINAL: RLQ abd pain, nausea, vomiting, diarrhea Absent: abdominal distension, constipation, melena, hematochezia GENITOURINARY: Absent: dysuria, frequency, urgency, hesitancy, hematuria, flank pain, genital pain MUSCULOSKELETAL: Absent: myalgia, arthralgia, joint swelling, back pain, neck pain SKIN: Absent: rash, itching, pallor HEMATOLOGIC/IMMUNOLOGIC: Absent: easy bleeding, easy bruising, lymphadenopathy, frequent infections ENDOCRINE: Absent: unexplained weight gain, unexplained weight loss, heat intolerance, cold intolerance NEUROLOGIC: Absent: headache, focal weakness or paresthesias, dizziness, unsteady gait, seizure, mental status changes, bladder or bowel incontinence PSYCHIATRIC: Absent: anxiety, depression, suicidal or homicidal ideation, hallucinations. PHYSICAL EXAMINATION Vital Signs - 24 hr 11/21/19 11/21/19 11/22/19 10:00 18:00 00:21 Temperature 98.5 F 98.1 F Pulse Rate 79 Pulse Rate [ 82 66 Left Radial] Respiratory 18 18 18 Rate Blood Pressure 197/81 H Blood Pressure 160/75 150/69 [Right Arm] O2 Sat by Pulse 99 99 99 Oximetry (%) GENERAL: Awake, alert, and fully oriented, in no acute distress. HEAD: NC, AT EYES: conjunctiva clear. EARS, NOSE, THROAT: Ears normal, oropharynx clear without exudates. Moist mucous membranes. NECK: Normal range of motion, supple without lymphadenopathy, JVD, or masses. LUNGS: Breath sounds equal, clear to auscultation bilaterally. No wheezes, and no crackles. No accessory muscle use. HEART: Regular rate and rhythm, normal S1 and S2 without murmur, rub or gallop. ABDOMEN: periumbilical surgical hernia repair scar. Tenderness of RLQ, positve psoas sign. Neg Rovsing's. MUSCULOSKELETAL: Normal range of motion at all joints. UPPER EXTREMITIES: 2+ pulses, warm, well-perfused. No peripheral edema. LOWER EXTREMITIES: 2+ pulses, warm, well-perfused. No calf tenderness. No peripheral edema. NEUROLOGICAL: Normal speech. PSYCHIATRIC: Cooperative. Good eye contact. Appropriate mood and affect. SKIN: Warm, dry, normal turgor, no rashes or lesions noted, normal capillary refill. Laboratory Results - last 24 hr 11/21/19 11/21/19 11/21/19 11:15 11:15 11:15 WBC 14.1 H RBC 5.30 H Hgb 15.4 H Hct 46.4 H MCV 87.4 MCH 29.1 MCHC 33.3 RDW 13.6 Plt Count 226 MPV 11.8 H Absolute Neuts (auto) 10.7 H Neutrophils % 76.1 Lymphocytes % 17.0 D Monocytes % 5.3 Eosinophils % 1.3 D Basophils % 0.3 Nucleated RBC % 0 PT with INR 11.30 INR 0.96 Sodium 141 Potassium 4.0 Chloride 109 H Carbon Dioxide 24 Anion Gap 9 BUN 13.8 Creatinine 0.7 Est GFR (CKD-EPI)AfAm 109.91 Est GFR (CKD-EPI)NonAf 94.84 Random Glucose 133 H Calcium 9.3 Total Bilirubin 0.7 AST 16 ALT 29 Alkaline Phosphatase 118 H Total Protein 7.8 Albumin 3.9 Lipase 105 Urine Color Urine Appearance Urine pH Ur Specific [place] Urine Protein Urine Glucose (UA) Urine Ketones Urine Blood Urine Nitrite Urine Bilirubin Urine Urobilinogen Ur Leukocyte Esterase 11/21/19 12:40 WBC RBC Hgb Hct MCV MCH MCHC RDW Plt Count MPV Absolute Neuts (auto) Neutrophils % Lymphocytes % Monocytes % Eosinophils % Basophils % Nucleated RBC % PT with INR INR Sodium Potassium Chloride Carbon Dioxide Anion Gap BUN Creatinine Est GFR (CKD-EPI)AfAm Est GFR (CKD-EPI)NonAf Random Glucose Calcium Total Bilirubin AST ALT Alkaline Phosphatase Total Protein Albumin Lipase Urine Color Yellow Urine Appearance Clear Urine pH 7.0 Ur Specific [place] 1.019 Urine Protein Negative Urine Glucose (UA) Negative Urine Ketones Negative Urine Blood Negative Urine Nitrite Negative Urine Bilirubin Negative Urine Urobilinogen 0.2 Ur Leukocyte Esterase Negative ASSESSMENT/PLAN: 59F w/ pmh of HDL, asthma, hiatal hernia BIBhusband for severe RLQ abdominal pain. HD stable. WBC 14.1. CT showing distended appendix. Admitted for probable appendicitis. #acute severe abdominal pain --probably 2/2 acute appendicitis >Tmax 98.5, 79, 197/81 --> 160/75 >CT A/P: distended appendix w/ wall thickening, adjacent fat stranding. No free pelvic fluid -abx regimen: --ED: sp zosyn --ceftriaxone + flagyl -pain regimen: --morphine 4mg q4h -nausea PRN --zofran -Surgery consult(Faith): --recs pending #chronic asthma --not in exacerbation -cw home symbicort -albuterol PRN FEN -NPO -NS @100 DVT PPX -SCDs Family Medical History Family History: As Documented Family Hx Diabetes: Mother Visit type - Emergency Visit Emergency Visit: Yes ED Registration Date: 11/21/19 Care time: The patient presented to the Emergency Department on the above date and was hospitalized for further evaluation of their emergent condition. - New Patient This patient is new to me today: Yes Date on this admission: 11/24/19 - Critical Care Critical Care patient: No ATTENDING PHYSICIAN STATEMENT I saw and evaluated the patient. I reviewed the resident's note and discussed the case with the resident. I agree with the resident's findings and plan as documented. SUBJECTIVE: OBJECTIVE: ASSESSMENT AND PLAN:
[2019-11-22 04:43] VITALS: BMI 28.3
[2019-11-22] MEDS ORDERED: ONDANSETRON 4 MG/2 ML VIAL IVPUSH PRN ×4 (06:39→13:03)
--- NOTE | 2019-11-22 08:10 | CONSULT ---
- Consultation REQUESTING PROVIDER: Kermit MATA CONSULT REQUEST: We have been asked to surgically evaluate this patient for acute appendicitis. Hospitalist:Daren Forbes MD HISTORY OF PRESENT ILLNESS: CTSP patient who is a 59-year-old female who presented to the ER yesterday w/ 2 days of nausea vomiting, diarrhea and abdominal pain. Pain was sharp and worse w/movement and better when lying still; it is continuous since inception. She states that her pain started immediately after eating takeout beans, rice and stew chicken. She has not taken any medication for her pain. Denies any other GI//PRODUCT HANDLER c/o. PMHx: HTN/HLD/asthma/ PSHx: abdominoplasty; right tennis elbow surgery; robotic assisted laparoscopic [facility] 02/22/2016 Home Medications Medication Instructions Recorded Albuterol Sulfate [Albuterol 2 puff IH Q4H PRN 11/22/19 Sulfate Hfa] Budesonide/Formeterol Fumarate 2 inh PO BID 11/22/19 [SYMBICORT 80/4.5mcg -] Allergies Allergy/AdvReac Type Severity Reaction Status Date / Time hydrochlorothiazide Allergy Severe Difficulty Verified 11/21/19 09:59 Breathing losartan Allergy Severe Swelling Verified 11/21/19 09:59 REVIEW OF SYSTEMS: CONSTITUTIONAL: Absent: fever, chills, diaphoresis, generalized weakness, malaise, loss of appetite, weight change CARDIOVASCULAR: Absent: chest pain, syncope, palpitations, irregular heart rate, lightheadedness, peripheral edema RESPIRATORY: Present: cough, shortness of breath, dyspnea with exertion, wheezing, stridor, Absent: hemoptysis GASTROINTESTINAL: Absent: abdominal pain, abdominal distension, nausea, vomiting, diarrhea, constipation, melena, hematochezia GENITOURINARY: Absent: dysuria, frequency, urgency, hesitancy, hematuria, flank pain, genital pain MUSCULOSKELETAL: Absent: myalgia, arthralgia, joint swelling, back pain, neck pain SKIN: Absent: rash, itching, pallor HEMATOLOGIC/IMMUNOLOGIC: Absent: easy bleeding, easy bruising, lymphadenopathy NEUROLOGIC: Absent: headache, focal weakness, paresthesias, dizziness, unsteady gait, seizure, mental status changes, bladder or bowel incontinence PSYCHIATRIC: Absent: anxiety, depression, suicidal or homicidal ideation, hallucinations. PHYSICAL EXAM: GENERAL: Awake, alert, and fully oriented, in no acute distress. HEAD: Normal with no signs of trauma. EYES: PERRL, sclera anicteric, conjunctiva clear. NECK: Normal ROM, supple without lymphadenopathy, JVD, or masses. ABDOMEN: Soft, tender, not distended, normoactive bowel sounds, guarding and localized rebouns are present;no masses. No organomegaly. Rovsings; psoas and obturator signs are present; abdominoplasty scar is present as well as healed port sites. MUSCULOSKELETAL: Normal ROM at all joints. No bony deformities or tenderness. No CVA tenderness. UPPER EXTREMITIES: 2+ pulses, warm, well-perfused. No cyanosis. Cap refill <2 seconds. No peripheral edema. LOWER EXTREMITIES: 2+ pulses, warm, well-perfused. No calf tenderness. No peripheral edema. NEUROLOGICAL: Normal speech, gait not observed. PSYCH: Cooperative. Good eye contact. Appropriate mood and affect. SKIN: Warm, dry, normal turgor, no rashes or lesions noted. Vital Signs Temperature 98.7 F 11/22/19 06:39 Pulse Rate 70 11/22/19 06:39 Respiratory Rate 20 11/22/19 06:39 Blood Pressure 116/57 L 11/22/19 06:39 O2 Sat by Pulse Oximetry (%) 98 11/22/19 04:34 Lab Results WBC 14.1 K/mm3 (4.0-10.0) H 11/21/19 11:15 RBC 5.30 M/mm3 (3.60-5.2) H 11/21/19 11:15 Hgb 15.4 GM/dL (10.7-15.3) H 11/21/19 11:15 Hct 46.4 % (32.4-45.2) H 11/21/19 11:15 MCV 87.4 fl (80-96) 11/21/19 11:15 MCHC 33.3 g/dl (32.0-36.0) 11/21/19 11:15 RDW 13.6 % (11.6-15.6) 11/21/19 11:15 Plt Count 226 K/MM3 (134-434) 11/21/19 11:15 INR 0.96 (0.83-1.09) 11/21/19 11:15 Sodium 141 mmol/L (136-145) 11/21/19 11:15 Potassium 4.0 mmol/L (3.5-5.1) 11/21/19 11:15 Chloride 109 mmol/L (98-107) H 11/21/19 11:15 Carbon Dioxide 24 mmol/L (21-32) 11/21/19 11:15 Anion Gap 9 MMOL/L (8-16) 11/21/19 11:15 BUN 13.8 mg/dL (7-18) 11/21/19 11:15 Creatinine 0.7 mg/dL (0.55-1.3) 11/21/19 11:15 Random Glucose 133 mg/dL (74-106) H 11/21/19 11:15 Calcium 9.3 mg/dL (8.5-10.1) 11/21/19 11:15 CT a/p reviewed images and report and findings c/w acute appendicitis IMP: acute appendicitis PLAN: Laparoscopic possible open appendectomy; r/b/t/a's d/w the patient and informed consent obtained. Behzad Cuevas MD FACS
[2019-11-22 08:18] LABS: HEMATOCRIT 40.6 % (32.4-45.2); HEMOGLOBIN 13.5 GM/dL (10.7-15.3); MCH 29.2 pg (25.7-33.7); MCHC 33.2 g/dl (32.0-36.0); MEAN CELL VOLUME 87.8 fl (80-96); MEAN PLT VOLUME 11.7 fl (7.5-11.1); PLATELET COUNT 185 K/MM3 (134-434); RBC 4.63 M/mm3 (3.60-5.2); RDW 13.8 % (11.6-15.6); WHITE BLOOD COUNT 18.8 K/mm3 (4.0-10.0)
[2019-11-22 08:22] LABS: CALCIUM 8.4 mg/dL (8.5-10.1); MAGNESIUM 2.2 mg/dL (1.8-2.4); POTASSIUM 3.9 mmol/L (3.5-5.1)
[2019-11-22 08:25] LABS: CREATININE 0.7 mg/dL (0.55-1.3)
[2019-11-22] MEDS ORDERED: BUDESONIDE/FORMETEROL FUMARATE 80/4.5 mcg INHALER IH SCH (10:00)
--- NOTE | 2019-11-22 10:48 | EKG ---
Test Reason : Blood Pressure : / mmHG Vent. Rate : 061 BPM Atrial Rate : 061 BPM P-R Int : 118 ms QRS Dur : 082 ms QT Int : 434 ms P-R-T Axes : 061 038 035 degrees QTc Int : 436 ms NORMAL SINUS RHYTHM POSSIBLE LEFT ATRIAL ENLARGEMENT WHEN COMPARED WITH ECG OF 18-MAR-2019 09:57, NO SIGNIFICANT CHANGE WAS FOUND Confirmed by ARIADNA HUTCHINSON MD ([id number]) on 11/22/2019 10:48:15 AM Referred By: Confirmed By:ARIADNA HUTCHINSON MD
[2019-11-22] MEDS ORDERED: SUCCINYLCHOLINE CHLORIDE 200 MG/10 ML SYRINGE ONE (11:05)
[2019-11-22] MEDS ORDERED: PROPOFOL 20 ML ONE (11:05)
--- NOTE | 2019-11-22 11:37 | CON.ID ---
Consult - Alcohol/Substance Use Hx Alcohol Use: No - Smoking History Smoking history: Never smoked Have you smoked in the past 12 months: No Aproximately how many cigarettes per day: 0 Home Medications - Allergies Allergies/Adverse Reactions: Allergies Allergy/AdvReac Type Severity Reaction Status Date / Time hydrochlorothiazide Allergy Severe Difficulty Verified 11/21/19 09:59 Breathing losartan Allergy Severe Swelling Verified 11/21/19 09:59 - Home Medications Home Medications: Ambulatory Orders Albuterol Sulfate [Albuterol Sulfate Hfa] 2 puff IH Q4H PRN 11/22/19 Budesonide/Formeterol Fumarate [SYMBICORT 80/4.5mcg -] 2 inh PO BID 11/22/19 Family Medical History Family Hx Diabetes: Mother Physical Exam Vital Signs: Vital Signs Temperature 99.0 F 11/22/19 08:10 Pulse Rate 66 11/22/19 08:10 Respiratory Rate 20 11/22/19 08:10 Blood Pressure 144/76 11/22/19 08:10 O2 Sat by Pulse Oximetry (%) 96 11/22/19 09:00 Labs: CBC, BMP 11/22/19 06:20 11/22/19 06:20
[2019-11-22] MEDS ORDERED: BUPIVACAINE HCL 0.5% 250 MG/50 ML VIAL IJ ONE ×2 (11:52)
[2019-11-22] MEDS ORDERED: NEOSTIGMINE METHYLSULFATE 0.5 MG/ML - 10 ML MDV ONE (12:15)
[2019-11-22] MEDS ORDERED: KETOROLAC TROMETHAMINE 30 MG/1 ML VIAL ONE (12:15)
[2019-11-22] MEDS ORDERED: DEXAMETHASONE SOD PHOSPHATE 4 MG/1 ML VIAL ONE (12:15)
[2019-11-22] MEDS ORDERED: GLYCOPYRROLATE 0.2 MG/1 ML VIAL ONE ×2 (12:15)
--- NOTE | 2019-11-22 12:35 | OP ---
Operative Note - Note: Operative Date: 11/22/19 Pre-Operative Diagnosis: acute appendicitis Operation: laparoscopic appendectomy Findings: acute suppurative appendicitis Post-Operative Diagnosis: Same as Pre-op Surgeon: Behzad Cuevas Public Service Representative: Reny Alfaro Anesthesiologist/PLASTER AND [employer]UCC[employer] WORKER: Beau Degroot Anesthesia: General Specimens Removed: appendix Estimated Blood Loss (mls): 10
[2019-11-22] MEDS ORDERED: PROMETHAZINE HCL 25 MG/1 ML VIAL IVPUSH PRN ×2 (12:56→13:03)
[2019-11-22] MEDS ORDERED: oxyCODONE HCL 5 MG TABLET PO PRN ×4 (12:56→13:03)
[2019-11-22] MEDS ORDERED: ACETAMINOPHEN 500 MG TABLET (FP) PO PRN ×2 (13:01→13:03)
--- NOTE | 2019-11-22 13:04 | SURG ---
Surgery Returns Clerk Note Returns Clerk: Reny Alfaro PA-C (Suzy) Date of Service: 11/22/19 Diagnosis: laparoscopic appendectomy Procedure: laparoscopic appendectomy I was present for the entirety of the operative procedure. For further detail, please refer to operative report. Visit type - Case Type Case Type: Scheduled - Emergency Emergency Visit: Yes ED Registration Date: 11/21/19 Care time: The patient presented to the Emergency Department on the above date and was hospitalized for further evaluation of their emergent condition. - New patient This patient is new to me today: Yes Date on this admission: 11/22/19 - Critical Care Critical Care patient: No
[2019-11-22] MEDS ORDERED: ACETAMINOPHEN INJECTION 100 ML IVPB ONE (13:22)
--- NOTE | 2019-11-22 14:03 | PN ---
Physical Exam: SUBJECTIVE: Patient seen and examined. Complaining of diffuse lower quadrant pain and chills. Denies fever, CP, SOB. OBJECTIVE: Vital Signs Period Temp Pulse Resp BP Sys/Christy Pulse Ox Last 24 Hr 98.1 F-99.0 F 66-82 18-20 116-160/57-77 96-99 CONSTITUTIONAL: chills Absent: fever, diaphoresis, generalized weakness, malaise, loss of appetite, weight change HEENT: Absent: rhinorrhea, nasal congestion, throat pain, throat swelling, difficulty swallowing, mouth swelling, ear pain, eye pain, visual changes CARDIOVASCULAR: Absent: chest pain, syncope, palpitations, irregular heart rate, lightheadedness, peripheral edema RESPIRATORY: Absent: cough, shortness of breath, dyspnea with exertion, orthopnea, wheezing, stridor, hemoptysis GASTROINTESTINAL: lower quadrant abd pain, nausea, vomiting, diarrhea Absent: abdominal distension, constipation, melena, hematochezia GENITOURINARY: Absent: dysuria, frequency, urgency, hesitancy, hematuria, flank pain, genital pain MUSCULOSKELETAL: Absent: myalgia, arthralgia, joint swelling, back pain, neck pain SKIN: Absent: rash, itching, pallor HEMATOLOGIC/IMMUNOLOGIC: Absent: easy bleeding, easy bruising, lymphadenopathy, frequent infections ENDOCRINE: Absent: unexplained weight gain, unexplained weight loss, heat intolerance, cold intolerance NEUROLOGIC: Absent: headache, focal weakness or paresthesias, dizziness, unsteady gait, seizure, mental status changes, bladder or bowel incontinence PSYCHIATRIC: Absent: anxiety, depression, suicidal or homicidal ideation, hallucinations. Laboratory Results - last 24 hr 11/21/19 11/21/19 11/22/19 12:40 19:20 06:20 WBC 18.8 H RBC 4.63 Hgb 13.5 Hct 40.6 MCV 87.8 MCH 29.2 MCHC 33.2 RDW 13.8 Plt Count 185 MPV 11.7 H Sodium Potassium Chloride Carbon Dioxide Anion Gap BUN Creatinine Est GFR (CKD-EPI)AfAm Est GFR (CKD-EPI)NonAf Random Glucose Calcium Magnesium Urine Color Yellow Urine Appearance Clear Urine pH 7.0 Ur Specific [place]ays 1.019 Urine Protein Negative Urine Glucose (UA) Negative Urine Ketones Negative Urine Blood Negative Urine Nitrite Negative Urine Bilirubin Negative Urine Urobilinogen 0.2 Ur Leukocyte Esterase Negative COVID-19 (WILLIAM) Not detected 11/22/19 06:20 WBC RBC Hgb Hct MCV MCH MCHC RDW Plt Count MPV Sodium 139 Potassium 3.9 Chloride 106 Carbon Dioxide 25 Anion Gap 8 BUN 9.0 Creatinine 0.7 Est GFR (CKD-EPI)AfAm 109.91 Est GFR (CKD-EPI)NonAf 94.84 Random Glucose 130 H Calcium 8.4 L Magnesium 2.2 Urine Color Urine Appearance Urine pH Ur Specific [place] Urine Protein Urine Glucose (UA) Urine Ketones Urine Blood Urine Nitrite Urine Bilirubin Urine Urobilinogen Ur Leukocyte Esterase COVID-19 (WILLIAM) Active Medications Generic Name Dose Route Start Last Admin Trade Name Freq PRN Reason Stop Dose Admin Acetaminophen 1,000 mg 11/22/19 13:03 Tylenol - PO Q6H PRN PAIN LEVEL 1-5 Albuterol Sulfate 2 puff 11/22/19 13:03 Ventolin Hfa Inhaler - IH Q4H PRN ASTHMA Budesonide/Formoterol Fumarate 2 puff 11/22/19 22:00 Symbicort 80/4.5mcg - IH BID TAISHA Sodium Chloride 1,000 mls @ 100 mls/hr 11/22/19 13:03 Normal Saline - IV ASDIR TAISHA Ondansetron HCl 4 mg 11/22/19 13:03 Zofran Injection IVPUSH Q6H PRN NAUSEA AND/OR VOMITING Oxycodone HCl 10 mg 11/22/19 13:03 Roxicodone - PO 11/23/19 12:55 Q4H PRN PAIN LEVEL 6-10 Oxycodone HCl 5 mg 11/22/19 13:03 Roxicodone - PO Q4H PRN PAIN LEVEL 4 - 6 ASSESSMENT/PLAN: 59F w/ pmh of HDL, asthma, hiatal hernia BIBhusband for severe RLQ abdominal pain. HD stable. WBC 14.1. CT showing distended appendix. Admitted for appendicitis. #Appendicitis -CT showing distended appendix with wall thickening, adjacent fat stranding, no free pelvic fluid -Afebrile, but BP 197/81 imrpoved to 116/57 -Received Zosyn and Rocephin in ED; switched to Rocephin and Flagyl -Morphine q4, Zofran PRN -Consulted surgery; pt to have surgery today #Hx of asthma -Continue home symbicort -PRN albuterol FEN NPO NS @100 PPx SCD Dispo: Admitted to med surg. Pt to receive appendectomy today. On rocephin and flagyl. Visit type - Emergency Visit Emergency Visit: Yes ED Registration Date: 11/21/19 Care time: The patient presented to the Emergency Department on the above date and was hospitalized for further evaluation of their emergent condition. - New Patient This patient is new to me today: No - Critical Care Critical Care patient: No ATTENDING PHYSICIAN STATEMENT I saw and evaluated the patient. I reviewed the resident's note and discussed the case with the resident. I agree with the resident's findings and plan as documented. SUBJECTIVE: OBJECTIVE: ASSESSMENT AND PLAN:
--- NOTE | 2019-11-22 14:37 | PN ---
Teaching Attending Note Name of Resident: Zulay Alfredo ATTENDING PHYSICIAN STATEMENT I saw and evaluated the patient. I reviewed the resident's note and discussed the case with the resident. I agree with the resident's findings and plan as documented. SUBJECTIVE: pt seen and examined prior to going to OR OBJECTIVE: Last Vital Signs Temp Pulse Resp BP Pulse Ox 99.4 F 67 16 106/56 L 100 11/22/19 12:50 11/22/19 14:15 11/22/19 14:15 11/22/19 14:15 11/22/19 14:15 GENERAL: Awake, alert, and fully oriented, in acute distress due to pain LUNGS: Breath sounds equal, clear to auscultation bilaterally. No wheezes, and no crackles. No accessory muscle use. HEART: Regular rate and rhythm, normal S1 and S2 ABDOMEN: tender, guarded, rebound tenderness, BS+ MUSCULOSKELETAL: Normal range of motion at all joints. No bony deformities or tenderness. No CVA tenderness. UPPER EXTREMITIES: 2+ pulses, warm, well-perfused. No cyanosis. No clubbing. No peripheral edema. LOWER EXTREMITIES: 2+ pulses, warm, well-perfused. No calf tenderness. No peripheral edema. NEUROLOGICAL: Cranial nerves II-XII intact. Normal speech. ASSESSMENT AND PLAN: 59 yo lady with history of HTN, HLD, and asthma who presents with acute onset abdominal pain, vomiting, and diarrhea admitted with acute appendicitis. # Acute appendicitis CT findings consistent with acute appendicitis Non-toxic appearing, pain controlled s/p morphine RCRI = 0, low risk for surgery leukocytosis on admission ABx per ID had appendectomy Pain management Asthma DVT ppx: SCD
[2019-11-22] MEDS: SODIUM CHLORIDE 1,000 ML IV SCH (14:40)
[2019-11-22] MEDS ORDERED: PT OWN MED DRAWER 7, Y5N ONE (22:34)
[2019-11-22] MEDS: BUDESONIDE/FORMETEROL FUMARATE 80/4.5 mcg INHALER IH SCH (22:38)
[2019-11-23 08:20] LABS: EOS % 0.3 % (0-4.5); HEMATOCRIT 38.9 % (32.4-45.2); HEMOGLOBIN 12.9 GM/dL (10.7-15.3); LYMPH % 19.8 % (8-40); MCH 29.5 pg (25.7-33.7); MCHC 33.1 g/dl (32.0-36.0); MEAN PLT VOLUME 12.2 fl (7.5-11.1); MONO % 6.3 % (3.8-10.2); NEUT % 72.6 % (42.8-82.8); PLATELET COUNT 190 K/MM3 (134-434); RBC 4.37 M/mm3 (3.60-5.2); RDW 13.5 % (11.6-15.6); WHITE BLOOD COUNT 15.7 K/mm3 (4.0-10.0)
[2019-11-23 08:54] LABS: ALBUMIN 3.1 g/dl (3.4-5.0); BILIRUBIN,TOTAL 0.7 mg/dL (0.2-1); BLOOD UREA NITROGEN 10.8 mg/dL (7-18); CALCIUM 8.7 mg/dL (8.5-10.1); CREATININE 0.8 mg/dL (0.55-1.3); MAGNESIUM 2.1 mg/dL (1.8-2.4); PHOSPHOROUS 2.4 mg/dL (2.5-4.9); POTASSIUM 3.9 mmol/L (3.5-5.1); TOT PROT 6.5 g/dl (6.4-8.2)
--- NOTE | 2019-11-23 09:02 | PN ---
Progress Note (short form) - Note Progress Note: Attending Surgeon POD#1 Minimal c/o pain; tolerating liquids and voiding VSS AF abdo-soft; port site tenderness only WBC 15.7 (down trending ) IMP: doing well PLAN: Advance diet and d/c home later today to office f/u 7-10 days. Behzad Cuevas MD FACS
[2019-11-23] MEDS: BUDESONIDE/FORMETEROL FUMARATE 80/4.5 mcg INHALER IH SCH (09:37)
--- NOTE | 2019-11-23 09:39 | OP ---
DATE OF OPERATION: 11/22/2019 PREOPERATIVE DIAGNOSIS: Acute appendicitis. POSTOPERATIVE DIAGNOSIS: Acute appendicitis. PROCEDURE: Laparoscopic appendectomy. SURGEON: Behzad Cuevas MD. FRONT DESK AUXILIARY: Reny Alfaro PA-C ANESTHESIA: General. OPERATIVE FINDINGS: Acute suppurative appendicitis. The rest of the findings were unremarkable. PROCEDURE: The patient was placed on the operating room table in the supine position, and after induction of general anesthesia and placement of a Mccain catheter, the patient's abdomen was prepped with ChloraPrep and draped in sterile fashion. A timeout was taken, and pneumoperitoneum established at the umbilicus, using a Veress needle to an intraabdominal pressure of 15 mmHg. Next, a 12-mm suprapubic port just to the left of the midline was placed without incident, and then a left lower quadrant 5-mm port. The patient was placed in the head-down position and rotated to the left and laparoscopy carried out and previously noted findings were observed. The appendix was grasped and using blunt dissection and the LigaSure device mobilized from the lateral abdominal wall. The mesoappendix was serially divided using the LigaSure device as well. Once the base of the appendix was identified at the confluence of the 3 tenia on the cecum, a 60-mm Endo SARI purple load stapler was placed across the base of the appendix and fired. The appendix was then placed in an EndoCatch and brought up to the abdominal wall at the 12-mm port site. The suture line was inspected for hemostasis and/or leak, and there was found to be none. The appendix was then removed with the 12-mm port, and sent the pathological examination. The 12-mm port was replaced and pneumoperitoneum reestablished, and hemostasis checked for and noted to be good. At this point, the two 5-mm ports and the 12-mm port were removed, and the pneumoperitoneum evacuated. The defect at the suprapubic port site was closed with a single [id number] 0 Vicryl suture, and the port sites were injected with 0.5% Marcaine. The skin edges were reapproximated with interrupted 4-0 Biosyn followed by Steri-Strips and Band-Aid dressings. The patient was then aroused from anesthesia and prior to this the Mccain catheter removed, and the patient transferred to post anesthesia care unit in stable condition awake and alert. Estimated blood loss: 10 mL. Replacement: crystalloid. Drains: none, Specimen: appendix to pathology. I, Behzad Cuevas, was physically present in the operating room from the time the patient was placed on the operating room table until patient was transferred to the postanesthesia care unit in my accompaniment. MD SARI Medina/[id number] MTDD
[2019-11-23] MEDS: SODIUM CHLORIDE 1,000 ML IV SCH (09:40)
--- NOTE | 2019-11-23 10:32 | PN ---
Progress Note (short form) - Note Progress Note: 59F s/p lap appendectomy under GETA. No new c/o. D/C pending Vital Signs Temp 98.7 F 11/23/19 05:44 Pulse 66 11/23/19 05:44 Resp 20 11/23/19 05:44 BP 135/70 11/23/19 05:44 Pulse Ox 96 11/23/19 05:44 Intake & Output 11/22/19 11/22/19 11/23/19 11:59 23:59 11:59 Intake Total 4085 355 7163 Output Total 10 150 Balance 676 523 7760 Weight 170 lb 5 oz Intake: IV 695 788 5570 Normal Saline - 1,000 ml 100 @ 100 mls/hr IV ASDIR TAISHA Rx#:[id number] Normal Saline - 1,000 ml 1100 @ 100 mls/hr IV ASDIR TAISHA Rx#:[id number] IVPB 100 Oral 0 Output: Urine 150 Estimated Blood Loss 10 Other: Voiding Method Toilet Toilet Toilet # Unmeasured Voids Void 2 1 Bowel Movement No No Height 5 ft 5 in Body Mass Index (BMI) 28.3 Weight Measurement Method Built in [facility] - No anesthesia complications
--- NOTE | 2019-11-23 11:23 | PN ---
Progress Note, Physician History of Present Illness: stable looks good tolerating liquids - Current Medication List Current Medications: Active Medications Acetaminophen (Tylenol -) 1,000 mg PO Q6H PRN PRN Reason: PAIN LEVEL 1-5 Last Admin: 11/22/19 13:20 Dose: 1,000 mg Documented by: Albuterol Sulfate (Ventolin Hfa Inhaler -) 2 puff IH Q4H PRN PRN Reason: ASTHMA Budesonide/Formoterol Fumarate (Symbicort 80/4.5mcg -) 2 puff IH BID [facility] Last Admin: 11/23/19 09:37 Dose: 2 puff Documented by: Sodium Chloride (Normal Saline -) 1,000 mls @ 100 mls/hr IV ASDIR TAISHA Last Admin: 11/23/19 09:40 Dose: 100 mls/hr Documented by: Ondansetron HCl (Zofran Injection) 4 mg IVPUSH Q6H PRN PRN Reason: NAUSEA AND/OR VOMITING Oxycodone HCl (Roxicodone -) 10 mg PO Q4H PRN PRN Reason: PAIN LEVEL 6-10 Stop: 11/23/19 12:55 Oxycodone HCl (Roxicodone -) 5 mg PO Q4H PRN PRN Reason: PAIN LEVEL 4 - 6 - Objective Vital Signs: Vital Signs Temperature 98.7 F 11/23/19 05:44 Pulse Rate 66 11/23/19 05:44 Respiratory Rate 20 11/23/19 05:44 Blood Pressure 135/70 11/23/19 05:44 O2 Sat by Pulse Oximetry (%) 96 11/23/19 05:44 Constitutional: Yes: No Distress, Calm Cardiovascular: Yes: S1, S2 Respiratory: Yes: Regular, CTA Bilaterally Gastrointestinal: Yes: Normal Bowel Sounds, Soft Musculoskeletal: Yes: WNL Extremities: Yes: WNL Neurological: Yes: Alert, Oriented Psychiatric: Yes: Alert, Oriented Labs: CBC, BMP 11/23/19 07:49 11/23/19 07:49 INR, PTT INR 0.96 (0.83-1.09) 11/21/19 11:15 Assessment/Plan 59F w/ pmh of HDL, asthma, hiatal hernia BIBhusband for severe RLQ abdominal pain. HD stable. WBC 14.1. CT showing distended appendix. Admitted for probable appendicitis. #acute severe abdominal pain ac appendicitis leukocytosis #chronic asthma plan can stop abx once patient starts eating rest as per the team
[2019-11-23 11:24] VITALS: BP 135/81; PULSE 78; TEMP 98.4
--- NOTE | 2019-11-23 12:11 | DS ---
Physical Exam: SUBJECTIVE: Patient seen and examined OBJECTIVE: Vital Signs Period Temp Pulse Resp BP Sys/Christy Pulse Ox Last 24 Hr 97.9 F-99.4 F 60-82 14-20 105-135/54-81 90-100 PHYSICAL EXAM GENERAL: Awake, alert, and fully oriented, not in acute distress LUNGS: Breath sounds equal, clear to auscultation bilaterally. No wheezes, and no crackles. No accessory muscle use. HEART: Regular rate and rhythm, normal S1 and S2 ABDOMEN: nontender, soft, BS+ MUSCULOSKELETAL: Normal range of motion at all joints. No bony deformities or tenderness. No CVA tenderness. UPPER EXTREMITIES: 2+ pulses, warm, well-perfused. No cyanosis. No clubbing. No peripheral edema. LOWER EXTREMITIES: 2+ pulses, warm, well-perfused. No calf tenderness. No peripheral edema. NEUROLOGICAL: Cranial nerves II-XII intact. Normal speech. LABS Laboratory Results - last 24 hr 11/23/19 11/23/19 07:49 07:49 WBC 15.7 H RBC 4.37 Hgb 12.9 Hct 38.9 MCV 89.0 MCH 29.5 MCHC 33.1 RDW 13.5 Plt Count 190 MPV 12.2 H Absolute Neuts (auto) 11.4 H Neutrophils % 72.6 Lymphocytes % 19.8 Monocytes % 6.3 Eosinophils % 0.3 Basophils % 1.0 D Nucleated RBC % 0 Sodium 145 Potassium 3.9 Chloride 114 H Carbon Dioxide 23 Anion Gap 8 BUN 10.8 Creatinine 0.8 Est GFR (CKD-EPI)AfAm 93.53 Est GFR (CKD-EPI)NonAf 80.70 Random Glucose 104 Calcium 8.7 Phosphorus 2.4 L Magnesium 2.1 Total Bilirubin 0.7 AST 14 L ALT 20 Alkaline Phosphatase 85 Total Protein 6.5 Albumin 3.1 L HOSPITAL COURSE: 59F w/ pmh of HDL, asthma, hiatal hernia BIBhusband for severe abdominal pain. CT A/P: distended appendix w/ wall thickening, adjacent fat stranding. No free pelvic fluid, pt was take to OR and had appendectomy. WBC trended down, pt was a ble to tolerate diet on next day and had flatus, she was cleared for discharge by surgery. Abx were discontinued per ID. pt was discharged home for follow up with outpatient surgery. Date of Admission:11/21/19 Date of Discharge: 11/23/19 Minutes to complete discharge: 35 Discharge Summary Problems reviewed: Yes Reason For Visit: APPENDICITIS Current Active Problems Appendicitis (Acute) Condition: Stable - Instructions Diet, Activity, Other Instructions: Dr. Cuevas Discharge Instructions Dear ADOLFO FIERRO, Post Operative Instructions Physical activity Resume your normal everyday activity as tolerated no heavy lifting or exercise until seen by your surgeon. You may walk unlimited amounts of and climb stairs. You may resume driving the car when you feel safe and comfortable behind the wheel. Wound care You have a liquid bandage over your incisions. This will come off slowly on its own over the next few weeks. Please avoid picking at it if you notice it fl aking. You may shower starting tomorrow. When showering allow soap and water to run over the incision. Do not scrub, pat dry after showering. Diet There are no dietary restrictions. Eat healthy, high-fiber foods. Drink 6 to 8 glasses of liquid each day. This will assist in keeping your bowels are regular. Pain management You may take Tylenol or acetaminophen or Ibuprofen (for example, Motrin, Advil etc.) Any pain prescription medication ordered should be taken as prescribed for moderate to severe pain. Call Dr. Cuevas for any of the following: Severe pain not relieved by medication Fever of 101 or higher Excessive bleeding or drainage on dressing Inability to urinate Call the office at [phone] for a post operative appointment in 7 - 10 days. Referrals: Behzad Cuevas MD [Staff Physician] - Heidi Lamas MD [Primary Care Provider] - Disposition: HOME - Home Medications Comprehensive Discharge Medication List: Ambulatory Orders Albuterol Sulfate [Albuterol Sulfate Hfa] 2 puff IH Q4H PRN 11/22/19 Budesonide/Formeterol Fumarate [SYMBICORT 80/4.5mcg -] 2 inh PO BID 11/22/19 Acetaminophen [Tylenol .Extra-Strength -] 1,000 mg PO Q6H PRN tablet 11/23/19 This patient is new to me today: No Emergency Visit: Yes ED Registration Date: 11/21/19 Care time: The patient presented to the Emergency Department on the above date and was hospitalized for further evaluation of their emergent condition. Critical Care patient: No - Discharge Referral Referred to [facility] No
--- NOTE | 2019-11-27 16:46 | PATH ---
Surgical Pathology Report Patient Name: ADOLFO FIERRO Med. Rec. #: [id number] /Age/Gender: 1960 (Age: 59) / F Account: [id number] Location: [facility] MED/SURG Taken: 11/22/2019 Received: 11/26/2019 Reported: 11/27/2019 Physicians: Behzad Cuevas MD Specimen(s) Received APPENDIX Clinical History Appendicitis Final Diagnosis APPENDIX, LAPAROSCOPIC APPENDECTOMY: ACUTE APPENDICITIS AND PERIAPPENDICITIS. Electronically Signed Carli Dias M.D. Gross Description Received in formalin, labeled "appendix," is a 6 cm. in length vermiform appendix with a stapled margin of resection and abundant attached fat. The serosa is mascorro-mcintyre with attached exudate. Sectioning reveals a hemorrhagic lumen. The wall of the appendix averages 0.1 cm. in thickness. Hand Spring Former sections are submitted in one cassette. /11/26/2019 saudi/11/26/2019
== END 2019-11-23 15:38 | disposition home or self-care (01) | DRG 343 ==
LOC: JER 09:58 → JERBED 19:50 → J8W 11-22 03:23
PROVIDERS: ADMIT Hospitalist; ATTEND Student in an Organized Health Care Education/Training Program
PROC: 0DTJ4ZZ Resection of Appendix, Percutaneous Endoscopic Approach (ICD-10-PCS; principal; 2019-11-22 13:30)
DX: K35.80 Unspecified acute appendicitis (principal); E78.5 Hyperlipidemia, unspecified; J45.909 Unspecified asthma, uncomplicated; I10 Essential (primary) hypertension; D72.829 Elevated white blood cell count, unspecified; K44.9 Diaphragmatic hernia without obstruction or gangrene
CPT/HCPCS: 36415; 74177-TC; 80048; 80053; 81003; 83690; 83735; 84100; 85025; 85027; 85610; 87086; 88304-TC; 93005; 93010; 94760; 99285-25; J0131; Q9967; U0003

== ENCOUNTER 2020-01-20 16:18 | Emergency (ER) | payer OTHER ==
[2020-01-20 16:29] VITALS: BP 169/88; PULSE 75; TEMP 97.8; BMI 25.0
[2020-01-20] MEDS ORDERED: KETOROLAC TROMETHAMINE 60 MG/2 ML VIAL IM ONE (16:33)
--- OUTSIDE RECORDS SUMMARY | 2020-01-20 16:40 | XMS ---
:1960 Author Organization [facility] Support Name Relationship Address Phone [facility] [place] [address] MELI FIERRO [address] [facility] [place] [address] MELI FIERRO Spouse [address] [facility] [place] [address] Re-disclosure Warning The records that you are about to access may contain information from federally- assisted alcohol or drug abuse programs. If such information is present, then the following federally mandated warning applies: This information has been disclosed to you from records protected by federal confidentiality rules (42 CFR part 2). The federal rules prohibit you from making any further disclosure of this information unless further disclosure is expressly permitted by the written consent of the person to whom it pertains or as otherwise permitted by 42 CFR part 2. A general authorization for the release of medical or other information is NOT sufficient for this purpose. The Federal rules restrict any use of the information to criminally investigate or prosecute any alcohol or drug abuse patient.The records that you are about to access may contain highly sensitive health information, the redisclosure of which is protected by Article 27-F of the [facility] Public Health law. If you continue you may haveaccess to information: Regarding HIV / AIDS; Provided by facilities licensed or operated by the [facility] Office of Mental Health; or Provided by the [facility] Office for People With Developmental Disabilities. If such information is present, then the following [facility] mandated warning applies: This information has been disclosed to you from confidential records which are protected by state law. State law prohibits you from making any further disclosure of this information without the specific written consent of the person to whom it pertains, or as otherwise permitted by law. Any unauthorized further disclosure in violation of state law may result in a fine or care home sentence or both. A general authorization for the release of medical or other information is NOT sufficient authorization for further disclosure. Insurance Providers Payer name Policy type / Policy ID Covered Covered libertarian's Policy Plan Coverage type libertarian ID relationship to [place] Information holliday [employer] HMO [id number] Results ID Date Data Source [id number] 11/21/2019 07:20:00 PM EDT [facility] Name Value Range Interpretation Description Data Sup porting Code Source(s) Document(s ) SARS [facility] coronavirus 2 RNA This lab was ordered by [facility] and reported by [facility]. Procedure
[2020-01-20] MEDS ORDERED: KETOROLAC TROMETHAMINE 60 MG/2 ML VIAL ONE (16:41)
--- NOTE | 2020-01-20 16:47 | PDOC ---
History of Present Illness - General Chief Complaint: Back Pain Stated Complaint: BACK PAIN Time Seen by Provider: 01/20/20 16:30 - History of Present Illness Initial Comments: 01/20/20 16:43 59-year-old female denies comorbidities presents for evaluation of lower back pain with posterior lateral right leg radicular symptoms to the level of her knee without systemic symptoms loss of bowel bladder function or saddle paresthesia. Pain has been going on for about a week waxing and waning history of prior radicular pain. She has taken a muscle relaxer she had at home this morning without much relief. Past History - Medical History Allergies/Adverse Reactions: Allergies Allergy/AdvReac Type Severity Reaction Status Date / Time hydrochlorothiazide Allergy Severe Difficulty Verified 01/20/20 16:26 Breathing losartan Allergy Severe Swelling Verified 01/20/20 16:26 Home Medications: Ambulatory Orders Albuterol Sulfate [Albuterol Sulfate Hfa] 2 puff IH Q4H PRN 11/22/19 Budesonide/Formeterol Fumarate [SYMBICORT 80/4.5mcg -] 2 inh PO BID 11/22/19 Acetaminophen [Tylenol .Extra-Strength -] 1,000 mg PO Q6H PRN tablet 11/23/19 Cyclobenzaprine HCl [Flexeril 10 mg] 10 mg PO HS PRN #10 tablet 01/20/20 Methylprednisolone [Medrol Dose French] 4 mg PO ASDIR #21 tablet 01/20/20 Asthma: Yes COPD: No GI Disorders: Yes (hiatal hernia gerd) Disorders: Yes (UTERINE FIBRIODS) Hypercholesterolemia: Yes Thyroid Disease: No - Surgical History Orthopedic Surgery: Yes (Right Elbow) - Immunization History Immunization Up to Date: Yes - Psycho-Social/Smoking History Smoking Status: No Smoking History: Never smoked Have you smoked in the past 12 months: No Number of Cigarettes Smoked Daily: 0 - Substance Abuse Hx (Audit-C & DAST Scrn) How often the patient has a drink containing alcohol: Never Score: In Men: 4 or > Positive; In Women: 3 or > Positive: 0 Screen Result (Pos requires Nsg. Audit-10AR): Negative In the last yr the pt used illegal drug/Rx for NonMed reason: No Score: Yes response is considered Positive: 0 Screen Result (Positive result requires Nsg. DAST-10): Negative Review of Systems - Review of Systems Constitutional: No: Fever : No: Incontinence Musculoskeletal: Yes: Back Pain Neurological: Yes: See HPI, Tingling *Physical Exam - Vital Signs Last Vital Signs Temp Pulse Resp BP Pulse Ox 97.8 F 75 16 169/88 100 01/20/20 16:26 01/20/20 16:26 01/20/20 16:26 01/20/20 16:26 01/20/20 16:26 - Physical Exam 01/20/20 16:43 Lumbar spine skin color temperature normal range of motion is slightly decreased. No midline tenderness. Moderate bilateral paralumbar musculature spasm and tenderness 5 out of 5 strength bilateral lower extremities without gross sensorimotor deficits thighs and calves are soft and nontender neurovas cular intact Medical Decision Making - Medical Decision Making 01/20/20 16:44 Mild relief with Toradol in the emergency room Medrol Dosepak and Flexeril at home. Patient instructed to discontinue her prior muscle relaxer. She denies comorbidities and states she is not on any other medication. Neuro surgery follow-up was recommended. I have reviewed the pathophysiology with the patient. They are in agreement with the treatment plan all questions were answered to their satisfaction. Understanding for follow-up without fail was also conveyed to the patient. Again they are in agreement. Discharge - Discharge Information Problems reviewed: Yes Clinical Impression/Diagnosis: Lumbar radiculopathy Condition: Stable Disposition: HOME - Admission No - Additional Discharge Information Prescriptions: Cyclobenzaprine HCl [Flexeril 10 mg] 10 mg PO HS PRN #10 tablet PRN Reason: Muscle Spasms Methylprednisolone [Medrol Dose French] 4 mg PO ASDIR #21 tablet - Follow up/Referral Referrals: Jose Huntley MD [Primary Care Provider] - Alcides Gann MD, FAANS [Staff Physician] - - Patient Discharge Instructions Additional Instructions: Do not take any anti-inflammatories such as Advil Motrin Aleve and ibuprofen. Discontinue your muscle relaxer that you have at home and take the prescribed muscle relaxer Flexeril is 1 tablet before bedtime. Please take the Medrol Dosepak as directed. It is a 6-day taper. You may take Tylenol as directed for pain on top of that. Return to the emergency room for worsening symptoms and without fail follow-up with neurosurgery in 1 to 2 days for further evaluation and treatment options. - Post Discharge Activity
== END 2020-01-20 16:50 | disposition home or self-care (01) ==
LOC: JERFT 16:18
PROC: 3E0233Z Introduction of Anti-inflammatory into Muscle, Percutaneous Approach (ICD-10-PCS; principal; 2020-01-20)
DX: M54.16 Radiculopathy, lumbar region (principal)
CPT/HCPCS: 99284-25

== ENCOUNTER 2020-08-14 10:37 | Inpatient (IN) | payer OTHER ==
[2020-08-14] MEDS ORDERED: ALBUTEROL SO4 2.5/IPRATROPIUM 0.5 INH SOL 3 ML VIAL.NEB. NEB ONE ×2 (10:55→11:44)
[2020-08-14] MEDS ORDERED: methylPREDNISolone NA SUCC 125 MG/2 ML VIAL IVPB ONE (11:17)
[2020-08-14] MEDS ORDERED: methylPREDNISolone NA SUCC 125 MG/2 ML VIAL ONE (11:44)
[2020-08-14] MEDS: ALBUTEROL SO4 2.5/IPRATROPIUM 0.5 INH SOL 3 ML VIAL.NEB. NEB SCH ×3 (12:04→14:13)
[2020-08-14 12:55] LABS: HEMATOCRIT 40.6 % (32.4-45.2); HEMOGLOBIN 13.5 GM/dL (10.7-15.3); MCH 29.5 pg (25.7-33.7); MCHC 33.3 g/dl (32.0-36.0); MEAN CELL VOLUME 88.6 fl (80-96); MEAN PLT VOLUME 12.3 fl (7.5-11.1); PLATELET COUNT 180 K/MM3 (134-434); RBC 4.58 M/mm3 (3.60-5.2); WHITE BLOOD COUNT 10.8 K/mm3 (4.0-10.0)
[2020-08-14] MEDS ORDERED: MAGNESIUM SULF 50% (8.12 MEQ/2 ML-1 GM VIAL) IVPB ONE (13:01)
[2020-08-14 13:17] LABS: ALBUMIN 3.7 g/dl (3.4-5.0); CALCIUM 9.3 mg/dL (8.5-10.1)
[2020-08-14 13:18] LABS: BLOOD UREA NITROGEN 17.7 mg/dL (7-18); MAGNESIUM 2.3 mg/dL (1.8-2.4)
[2020-08-14 13:21] LABS: CREATININE 0.6 mg/dL (0.55-1.3)
[2020-08-14 13:22] LABS: BILIRUBIN,TOTAL 0.4 mg/dL (0.2-1); TOT PROT 6.9 g/dl (6.4-8.2)
[2020-08-14 13:23] LABS: N-TERMINAL BNP 134.7 pg/ml (5-125)
[2020-08-14] MEDS ORDERED: MAGNESIUM SULFATE IN WATER 2 GM/50 ML IVPB IVPB ONE (14:15)
[2020-08-14] MEDS ORDERED: LORazepam 2 MG TABLET PO ONE (15:12)
[2020-08-14] MEDS ORDERED: LORazepam 1 MG TABLET ONE (15:17)
[2020-08-14] MEDS ORDERED: ALBUTEROL SO4 0.083% IH SOL 2.5 MG/3 ML VIAL.NEB. NEB ONE ×2 (16:47→17:00)
[2020-08-14] MEDS ORDERED: ALBUTEROL SO4 0.083% IH SOL 2.5 MG/3 ML VIAL.NEB. NEB PRN (16:58)
[2020-08-14] MEDS: INSULIN SLIDING SCALE (NOVOLOG) 1 VIAL SQ SCH (21:06)
[2020-08-14] MEDS: ATORVASTATIN CA 20 MG TABLET (FP) PO SCH (21:08)
[2020-08-14] MEDS: BUDESONIDE/FORMETEROL FUMARATE 80/4.5 mcg INHALER IH SCH (21:48)
[2020-08-14] MEDS ORDERED: methylPREDNISolone NA SUCC 40 MG/1 ML VIAL IVPB SCH (22:00)
[2020-08-14 22:49] VITALS: BMI 26.0
[2020-08-15] MEDS: methylPREDNISolone NA SUCC 40 MG/1 ML VIAL IVPB SCH ×3 (06:04→17:18)
[2020-08-15] MEDS: INSULIN SLIDING SCALE (NOVOLOG) 1 VIAL SQ SCH ×4 (06:05→21:46)
[2020-08-15 08:59] LABS: HEMATOCRIT 39.6 % (32.4-45.2); HEMOGLOBIN 13.4 GM/dL (10.7-15.3); MCH 29.7 pg (25.7-33.7); MCHC 33.9 g/dl (32.0-36.0); MEAN CELL VOLUME 87.6 fl (80-96); MEAN PLT VOLUME 12.5 fl (7.5-11.1); PLATELET COUNT 207 K/MM3 (134-434); RBC 4.52 M/mm3 (3.60-5.2); RDW 14.2 % (11.6-15.6); WHITE BLOOD COUNT 18.6 K/mm3 (4.0-10.0)
[2020-08-15 09:14] LABS: CALCIUM 9.1 mg/dL (8.5-10.1)
[2020-08-15 09:15] LABS: BLOOD UREA NITROGEN 16.7 mg/dL (7-18); MAGNESIUM 2.3 mg/dL (1.8-2.4)
[2020-08-15 09:18] LABS: CREATININE 0.7 mg/dL (0.55-1.3); PHOSPHOROUS 2.8 mg/dL (2.5-4.9)
[2020-08-15] MEDS ORDERED: predniSONE 20 MG TABLET (UD) PO SCH (10:00)
[2020-08-15] MEDS: PANTOPRAZOLE 40 MG TABLET PO SCH (11:24)
[2020-08-15] MEDS: LORATADINE 10 MG TABLET PO SCH (11:24)
[2020-08-15] MEDS: ENOXAPARIN NA (PORCINE) 40 MG/0.4 ML DISP.SYRIN SQ SCH (11:25)
[2020-08-15] MEDS: BUDESONIDE/FORMETEROL FUMARATE 80/4.5 mcg INHALER IH SCH ×2 (11:28→21:45)
[2020-08-15] MEDS ORDERED: INSULIN (NOVOLOG) ASPART 100 UNITS/ML 10ML VIAL ONE ×2 (11:40→21:38)
[2020-08-15] MEDS: ALBUTEROL SO4 2.5/IPRATROPIUM 0.5 INH SOL 3 ML VIAL.NEB. NEB SCH ×3 (16:33→20:10)
[2020-08-15] MEDS ORDERED: ACETAMINOPHEN 325 MG TABLET (FP) PO PRN (17:29)
[2020-08-15] MEDS: ATORVASTATIN CA 20 MG TABLET (FP) PO SCH (21:35)
[2020-08-16] MEDS: methylPREDNISolone NA SUCC 40 MG/1 ML VIAL IVPB SCH ×2 (01:43→10:01)
[2020-08-16] MEDS: INSULIN SLIDING SCALE (NOVOLOG) 1 VIAL SQ SCH ×2 (06:28→11:02)
[2020-08-16 08:44] LABS: BASO % 0.1 % (0-2.0); HEMATOCRIT 39.1 % (32.4-45.2); HEMOGLOBIN 13.5 GM/dL (10.7-15.3); LYMPH % 8.5 % (8-40); MCH 30.2 pg (25.7-33.7); MCHC 34.4 g/dl (32.0-36.0); MEAN CELL VOLUME 87.7 fl (80-96); MEAN PLT VOLUME 12.7 fl (7.5-11.1); MONO % 2.6 % (3.8-10.2); NEUT % 88.8 % (42.8-82.8); PLATELET COUNT 189 K/MM3 (134-434); RBC 4.46 M/mm3 (3.60-5.2); RDW 14.4 % (11.6-15.6); WHITE BLOOD COUNT 21.7 K/mm3 (4.0-10.0)
[2020-08-16 09:09] LABS: ALBUMIN 3.4 g/dl (3.4-5.0); BLOOD UREA NITROGEN 17.2 mg/dL (7-18); CALCIUM 8.4 mg/dL (8.5-10.1)
[2020-08-16 09:12] LABS: CREATININE 0.7 mg/dL (0.55-1.3)
[2020-08-16 09:14] LABS: BILIRUBIN,TOTAL 0.3 mg/dL (0.2-1); TOT PROT 6.4 g/dl (6.4-8.2)
[2020-08-16] MEDS: LORATADINE 10 MG TABLET PO SCH (09:18)
[2020-08-16] MEDS: PANTOPRAZOLE 40 MG TABLET PO SCH (09:18)
[2020-08-16] MEDS: ENOXAPARIN NA (PORCINE) 40 MG/0.4 ML DISP.SYRIN SQ SCH (09:18)
[2020-08-16] MEDS: BUDESONIDE/FORMETEROL FUMARATE 80/4.5 mcg INHALER IH SCH (09:20)
[2020-08-16 09:22] VITALS: BP 160/81; PULSE 74; TEMP 98.9
[2020-08-16] MEDS: ALBUTEROL SO4 2.5/IPRATROPIUM 0.5 INH SOL 3 ML VIAL.NEB. NEB SCH ×2 (09:30→12:47)
[2020-08-16 09:47] LABS: ANISOCYTOSIS 0; MACROCYTOSIS 0; PLATELET ESTIMATE NORMAL
[2020-08-16] MEDS ORDERED: INSULIN (NOVOLOG) ASPART 100 UNITS/ML 10ML VIAL ONE (11:00)
[2020-08-16] MEDS ORDERED: predniSONE 20 MG TABLET (UD) PO SCH (13:15)
== END 2020-08-16 15:21 | disposition home or self-care (01) | DRG 203 ==
LOC: JER 10:37 → JERBED 14:46 → J6S 20:01
PROVIDERS: ADMIT Internal Medicine; ATTEND Student in an Organized Health Care Education/Training Program
DX: J45.21 Mild intermittent asthma with (acute) exacerbation (principal); E78.5 Hyperlipidemia, unspecified; E11.9 Type 2 diabetes mellitus without complications; K21.9 Gastro-esophageal reflux disease without esophagitis; K44.9 Diaphragmatic hernia without obstruction or gangrene; D25.9 Leiomyoma of uterus, unspecified
CPT/HCPCS: 36415; 71045-TC-FY; 80048; 80053; 82550; 82962; 83735; 83880; 84100; 84484; 85025; 85027; 87804; 93005; 93010; 94640; 99285-25; C9803; U0003; U0005

== ENCOUNTER 2020-08-30 03:34 | Observation (INO) | payer OTHER ==
[2020-08-30 05:18] LABS: BASO % 0.7 % (0-2.0); EOS % 3.2 % (0-4.5); HEMATOCRIT 40.9 % (32.4-45.2); HEMOGLOBIN 13.4 GM/dL (10.7-15.3); LYMPH % 24.6 % (8-40); MCH 28.7 pg (25.7-33.7); MCHC 32.6 g/dl (32.0-36.0); MEAN PLT VOLUME 12.8 fl (7.5-11.1); MONO % 9.7 % (3.8-10.2); NEUT % 61.8 % (42.8-82.8); PLATELET COUNT 179 K/MM3 (134-434); RBC 4.65 M/mm3 (3.60-5.2); RDW 14.2 % (11.6-15.6); WHITE BLOOD COUNT 11.1 K/mm3 (4.0-10.0)
[2020-08-30 05:35] LABS: ALBUMIN 3.4 g/dl (3.4-5.0); BLOOD UREA NITROGEN 21.9 mg/dL (7-18); MAGNESIUM 2.1 mg/dL (1.8-2.4)
[2020-08-30 05:40] LABS: BILIRUBIN,TOTAL 0.2 mg/dL (0.2-1); TOT PROT 6.3 g/dl (6.4-8.2)
[2020-08-30 06:36] LABS: CREATININE 0.6 mg/dL (0.55-1.3)
[2020-08-30] MEDS ORDERED: ASPIRIN 81 MG CHEWABLE TABLETS PO ONE (10:57)
[2020-08-30] MEDS ORDERED: ASPIRIN 81 MG CHEWABLE TABLETS ONE (10:59)
[2020-08-30 14:54] VITALS: BMI 24.1
[2020-08-30] MEDS ORDERED: ALBUTEROL SO4 HFA INHALER IH PRN (18:17)
[2020-08-30] MEDS: ACETAMINOPHEN 500 MG TABLET (FP) PO PRN (18:33)
[2020-08-30] MEDS: ATORVASTATIN CA 20 MG TABLET (FP) PO SCH (21:08)
[2020-08-30] MEDS: INSULIN SLIDING SCALE (NOVOLOG) 1 VIAL SQ SCH (21:12)
[2020-08-31] MEDS ORDERED: guaiFENesin 600 MG TABLET.ER (FP) PO ONE (00:37)
[2020-08-31] MEDS: INSULIN SLIDING SCALE (NOVOLOG) 1 VIAL SQ SCH ×4 (06:01→21:19)
[2020-08-31 07:00] LABS: ALBUMIN 3.4 g/dl (3.4-5.0); BLOOD UREA NITROGEN 15.9 mg/dL (7-18); CALCIUM 9.5 mg/dL (8.5-10.1)
[2020-08-31 07:01] LABS: MAGNESIUM 2.3 mg/dL (1.8-2.4)
[2020-08-31 07:02] LABS: CREATININE 0.7 mg/dL (0.55-1.3)
[2020-08-31 07:03] LABS: PHOSPHOROUS 3.3 mg/dL (2.5-4.9)
[2020-08-31 07:04] LABS: BILIRUBIN,TOTAL 0.6 mg/dL (0.2-1); TOT PROT 6.6 g/dl (6.4-8.2)
[2020-08-31 07:08] LABS: N-TERMINAL BNP 201.7 pg/ml (5-125)
[2020-08-31 07:12] LABS: BASO % 0.9 % (0-2.0); EOS % 3.7 % (0-4.5); HEMATOCRIT 43.7 % (32.4-45.2); HEMOGLOBIN 14.3 GM/dL (10.7-15.3); LYMPH % 40.2 % (8-40); MCH 29.1 pg (25.7-33.7); MCHC 32.7 g/dl (32.0-36.0); MEAN PLT VOLUME 11.6 fl (7.5-11.1); MONO % 7.2 % (3.8-10.2); PLATELET COUNT 177 K/MM3 (134-434); RBC 4.91 M/mm3 (3.60-5.2); RDW 14.2 % (11.6-15.6)
[2020-08-31] MEDS: ENOXAPARIN NA (PORCINE) 40 MG/0.4 ML DISP.SYRIN SQ SCH (09:14)
[2020-08-31] MEDS: ACETAMINOPHEN 500 MG TABLET (FP) PO PRN ×2 (09:15→16:36)
[2020-08-31] MEDS: predniSONE 20 MG TABLET (UD) PO SCH (09:47)
[2020-08-31] MEDS: ATORVASTATIN CA 20 MG TABLET (FP) PO SCH (21:19)
[2020-09-01] MEDS: INSULIN SLIDING SCALE (NOVOLOG) 1 VIAL SQ SCH ×4 (06:12→21:26)
[2020-09-01 07:28] LABS: HEMATOCRIT 40.2 % (32.4-45.2); HEMOGLOBIN 13.5 GM/dL (10.7-15.3); MCH 29.3 pg (25.7-33.7); MCHC 33.6 g/dl (32.0-36.0); MEAN CELL VOLUME 87.2 fl (80-96); MEAN PLT VOLUME 11.3 fl (7.5-11.1); PLATELET COUNT 167 10^3/uL (134-434); RBC 4.61 M/mm3 (3.60-5.2); RDW 13.7 % (11.6-15.6); WHITE BLOOD COUNT 12.5 K/mm3 (4.0-10.0)
[2020-09-01 07:47] LABS: BLOOD UREA NITROGEN 14.5 mg/dL (7-18)
[2020-09-01 07:50] LABS: CREATININE 0.7 mg/dL (0.55-1.3)
[2020-09-01] MEDS ORDERED: REGADENOSON 0.4 MG/5 ML PRE-FILLED SYRINGE IVPUSH ONE ×2 (09:28→09:30)
[2020-09-01] MEDS ORDERED: NITROGLYCERIN SUBLINGUAL 1/150 0.4 MG TAB SL ONE (10:30)
[2020-09-01] MEDS ORDERED: NITROGLYCERIN SUBLINGUAL 1/150 0.4 MG TAB ONE (10:31)
[2020-09-01] MEDS: predniSONE 20 MG TABLET (UD) PO SCH (11:34)
[2020-09-01] MEDS: ENOXAPARIN NA (PORCINE) 40 MG/0.4 ML DISP.SYRIN SQ SCH (12:00)
[2020-09-01] MEDS: ATORVASTATIN CA 20 MG TABLET (FP) PO SCH (21:26)
[2020-09-02 02:10] VITALS: BP 143/96; PULSE 96; TEMP 97.8
== END 2020-09-02 00:50 | disposition short-term general hospital (02) ==
LOC: JER 03:34 → JERBED 08:59 → J4S 14:17
PROVIDERS: ADMIT Family Medicine; ATTEND Internal Medicine
PROC: 3E023GC Introduction of Other Therapeutic Substance into Muscle, Percutaneous Approach (ICD-10-PCS; principal; 2020-08-30)
PROC: 3E013VG Introduction of Insulin into Subcutaneous Tissue, Percutaneous Approach (ICD-10-PCS; 2020-08-30)
PROC: 3E033GC Introduction of Other Therapeutic Substance into Peripheral Vein, Percutaneous Approach (ICD-10-PCS; 2020-08-30)
DX: J45.41 Moderate persistent asthma with (acute) exacerbation (principal); R07.9 Chest pain, unspecified; E78.5 Hyperlipidemia, unspecified; E11.9 Type 2 diabetes mellitus without complications; R79.89 Other specified abnormal findings of blood chemistry; M54.2 Cervicalgia
CPT/HCPCS: 36415; 70491-TC; 71046-TC-FY; 71275-TC; 78452-TC; 80048; 80053; 82550; 82962; 83735; 83880; 84100; 84436; 84443; 84484; 85025; 85027; 85379; 93005; 93010; 93017; 93306-TC; 93970-TC; 99285-25; A9502; C9803; G0378; J2785; Q9967; U0003; U0005

== ENCOUNTER 2021-08-14 09:16 | Emergency (ER) | payer OTHER ==
[2021-08-14 09:29] VITALS: BP 138/67; PULSE 55; TEMP 97.7; BMI 27.4
[2021-08-14] MEDS ORDERED: KETOROLAC TROMETHAMINE 30 MG/1 ML VIAL IM ONE (09:46)
[2021-08-14] MEDS ORDERED: DEXAMETHASONE SOD PHOSPHATE 10 MG/1 ML VIAL IM ONE (09:47)
[2021-08-14] MEDS ORDERED: LIDOCAINE 5% TOPICAL PATCH TP ONE (09:47)
[2021-08-14] MEDS ORDERED: CYCLOBENZAPRINE HCL 10 MG TABLET (FP) PO ONE (09:48)
[2021-08-14] MEDS ORDERED: CYCLOBENZAPRINE HCL 10 MG TABLET (FP) ONE (10:03)
[2021-08-14] MEDS ORDERED: LIDOCAINE 5% TOPICAL PATCH ONE (10:03)
[2021-08-14] MEDS ORDERED: DEXAMETHASONE SOD PHOSPHATE 10 MG/1 ML VIAL ONE (10:03)
[2021-08-14] MEDS ORDERED: KETOROLAC TROMETHAMINE 30 MG/1 ML VIAL ONE (10:03)
[2021-08-14] MEDS ORDERED: LIDOCAINE PATCH REMOVAL MC SCH (22:00)
== END 2021-08-14 14:43 ==
LOC: JERFT 09:16
PROC: 3E033NZ Introduction of Analgesics, Hypnotics, Sedatives into Peripheral Vein, Percutaneous Approach (ICD-10-PCS; principal; 2021-08-14)
PROC: 3E0233Z Introduction of Anti-inflammatory into Muscle, Percutaneous Approach (ICD-10-PCS; 2021-08-14)
DX: M54.41 Lumbago with sciatica, right side (principal)
CPT/HCPCS: 72131-TC; 99285-25; J1100

== ENCOUNTER 2021-08-19 13:55 | Inpatient (IN) | payer OTHER ==
[2021-08-19] MEDS ORDERED: KETOROLAC TROMETHAMINE 30 MG/1 ML VIAL IVPUSH ONE (17:21)
[2021-08-19] MEDS ORDERED: diazePAM CARPU-JECT 10 MG/2 ML DISP.SYRIN IVPUSH ONE (17:22)
[2021-08-19] MEDS ORDERED: SODIUM CHLORIDE 0.9% 500 ML INFUS.BAG IV ONE (17:22)
[2021-08-19] MEDS ORDERED: predniSONE 20 MG TABLET (UD) PO ONE (17:23)
[2021-08-19] MEDS ORDERED: predniSONE 20 MG TABLET (UD) ONE (17:33)
[2021-08-19] MEDS ORDERED: diazePAM CARPU-JECT 10 MG/2 ML DISP.SYRIN ONE (17:33)
[2021-08-19] MEDS ORDERED: KETOROLAC TROMETHAMINE 30 MG/1 ML VIAL ONE (17:34)
[2021-08-19 18:49] LABS: BASO % 0.5 % (0-2.0); EOS % 4.8 % (0-4.5); HEMATOCRIT 45.9 % (32.4-45.2); HEMOGLOBIN 15.4 GM/dL (10.7-15.3); MCH 29.1 pg (25.7-33.7); MCHC 33.5 g/dl (32.0-36.0); MEAN CELL VOLUME 86.8 fl (80-96); MEAN PLT VOLUME 11.6 fl (7.5-11.1); MONO % 7.2 % (3.8-10.2); NEUT % 50.5 % (42.8-82.8); PLATELET COUNT 220 10^3/uL (134-434); RBC 5.29 M/mm3 (3.60-5.2)
[2021-08-19 19:02] LABS: URINE APPEARANCE CLEAR; URINE BILIRUBIN NEGATIVE (NEGATIVE); URINE COLOR YELLOW; URINE GLUCOSE (UA) NEGATIVE (NEGATIVE); URINE KETONE NEGATIVE (NEGATIVE); URINE LEUK ESTERASE NEGATIVE (NEGATIVE); URINE NITRITE NEGATIVE (NEGATIVE); URINE PROTEIN NEGATIVE (NEGATIVE); URINE UROBILINOGEN 0.2 mg/dL (0.2-1.0)
[2021-08-19 19:10] LABS: CALCIUM 9.6 mg/dL (8.5-10.1)
[2021-08-19 19:11] LABS: ALBUMIN 4.1 g/dl (3.4-5.0); BLOOD UREA NITROGEN 16.4 mg/dL (7-18)
[2021-08-19 19:14] LABS: CREATININE 0.7 mg/dL (0.55-1.3)
[2021-08-19 19:15] LABS: BILIRUBIN,TOTAL 0.5 mg/dL (0.2-1); TOT PROT 7.5 g/dl (6.4-8.2)
[2021-08-19] MEDS ORDERED: oxyCODONE HCL 5 MG TABLET ONE (22:44)
[2021-08-19] MEDS: oxyCODONE HCL 5 MG TABLET PO PRN (22:51)
[2021-08-19] MEDS: INSULIN SLIDING SCALE (NOVOLOG) 1 VIAL SQ SCH (22:59)
[2021-08-20 07:51] LABS: HEMATOCRIT 43.7 % (32.4-45.2); HEMOGLOBIN 14.8 GM/dL (10.7-15.3); MCH 29.7 pg (25.7-33.7); MEAN CELL VOLUME 87.4 fl (80-96); MEAN PLT VOLUME 11.8 fl (7.5-11.1); PLATELET COUNT 197 10^3/uL (134-434); RDW 14.3 % (11.6-15.6); WHITE BLOOD COUNT 9.8 K/mm3 (4.0-10.0)
[2021-08-20 07:59] LABS: INR 1.04 (0.83-1.09)
[2021-08-20] MEDS: INSULIN SLIDING SCALE (NOVOLOG) 1 VIAL SQ SCH ×3 (08:00→16:13)
[2021-08-20] MEDS ORDERED: oxyCODONE HCL 5 MG TABLET ONE ×2 (08:02→12:15)
[2021-08-20] MEDS: oxyCODONE HCL 5 MG TABLET PO PRN ×3 (08:06→21:11)
[2021-08-20 08:18] LABS: ALBUMIN 3.8 g/dl (3.4-5.0); BLOOD UREA NITROGEN 17.3 mg/dL (7-18); CALCIUM 9.4 mg/dL (8.5-10.1)
[2021-08-20 08:22] LABS: CREATININE 0.7 mg/dL (0.55-1.3); PHOSPHOROUS 3.8 mg/dL (2.5-4.9)
[2021-08-20 08:24] LABS: BILIRUBIN,TOTAL 0.4 mg/dL (0.2-1); TOT PROT 7.1 g/dl (6.4-8.2)
[2021-08-20] MEDS ORDERED: ENOXAPARIN NA (PORCINE) 40 MG/0.4 ML DISP.SYRIN SQ ONE (12:15)
[2021-08-20] MEDS: ENOXAPARIN NA (PORCINE) 40 MG/0.4 ML DISP.SYRIN SQ SCH (12:21)
[2021-08-20] MEDS ORDERED: ACETAMINOPHEN 325 MG TABLET (FP) PO PRN (12:36)
[2021-08-20] MEDS: METOPROLOL TARTRATE 50 MG TABLET (FP) PO SCH ×2 (14:02→21:11)
[2021-08-20] MEDS: GABAPENTIN 100 MG CAPSULE PO SCH ×2 (14:02→21:11)
[2021-08-20 14:49] VITALS: BMI 27.8
[2021-08-20] MEDS: CYCLOBENZAPRINE HCL 5 MG TABLET PO PRN (21:11)
[2021-08-20] MEDS: ATORVASTATIN CA 80 MG TABLET (FP) PO SCH (21:11)
[2021-08-21] MEDS: GABAPENTIN 100 MG CAPSULE PO SCH ×3 (05:56→21:00)
[2021-08-21] MEDS: INSULIN SLIDING SCALE (NOVOLOG) 1 VIAL SQ SCH ×3 (06:00→16:28)
[2021-08-21] MEDS: BUDESONIDE/FORMETEROL FUMARATE 160/4.5 mcg INHALER IH SCH ×2 (09:36→09:40)
[2021-08-21] MEDS: METOPROLOL TARTRATE 50 MG TABLET (FP) PO SCH ×2 (09:36→21:00)
[2021-08-21] MEDS: ENOXAPARIN NA (PORCINE) 40 MG/0.4 ML DISP.SYRIN SQ SCH (09:36)
[2021-08-21] MEDS: amLODIPine BESYLATE 5 MG TABLET (FP) PO SCH (09:37)
[2021-08-21] MEDS ORDERED: ASPIRIN 81 MG CHEWABLE TABLETS PO SCH (10:00)
[2021-08-21] MEDS ORDERED: INSULIN (NOVOLOG) ASPART 100 UNITS/ML 10ML VIAL ONE ×2 (11:14→17:41)
[2021-08-21] MEDS: DOCUSATE SODIUM 100 MG CAPSULE (FP) PO SCH ×2 (13:25→21:01)
[2021-08-21] MEDS: oxyCODONE HCL 5 MG TABLET PO PRN (21:00)
[2021-08-21] MEDS: ATORVASTATIN CA 80 MG TABLET (FP) PO SCH (21:01)
[2021-08-22] MEDS: CYCLOBENZAPRINE HCL 5 MG TABLET PO PRN (04:18)
[2021-08-22] MEDS: TETRAHYDROZOLINE HCL EYE DROPS OU PRN ×2 (04:20→12:13)
[2021-08-22] MEDS: GABAPENTIN 100 MG CAPSULE PO SCH ×3 (05:48→21:05)
[2021-08-22] MEDS: DOCUSATE SODIUM 100 MG CAPSULE (FP) PO SCH ×3 (05:48→21:05)
[2021-08-22] MEDS: INSULIN SLIDING SCALE (NOVOLOG) 1 VIAL SQ SCH ×3 (07:21→16:55)
[2021-08-22] MEDS: METOPROLOL TARTRATE 50 MG TABLET (FP) PO SCH ×2 (09:30→21:05)
[2021-08-22] MEDS: amLODIPine BESYLATE 5 MG TABLET (FP) PO SCH (09:30)
[2021-08-22] MEDS: BUDESONIDE/FORMETEROL FUMARATE 160/4.5 mcg INHALER IH SCH (09:37)
[2021-08-22] MEDS ORDERED: MAGNESIUM CITRATE 300 ML BOTTLE PO ONE (10:30)
[2021-08-22] MEDS ORDERED: INSULIN (NOVOLOG) ASPART 100 UNITS/ML 10ML VIAL ONE (11:14)
[2021-08-22] MEDS: POLYETHYLENE GLYCOL (HEALTHYLAX) 3350 17 GM PACKET PO SCH (14:33)
[2021-08-22] MEDS: ATORVASTATIN CA 80 MG TABLET (FP) PO SCH (21:05)
[2021-08-23] MEDS: DOCUSATE SODIUM 100 MG CAPSULE (FP) PO SCH ×3 (05:44→21:24)
[2021-08-23] MEDS: GABAPENTIN 100 MG CAPSULE PO SCH ×3 (05:44→21:24)
[2021-08-23] MEDS ORDERED: THROMBIN (BOVINE) 5,000 UNIT VIAL TP ONE ×3 (07:15→10:45)
[2021-08-23] MEDS ORDERED: BUPIVACAINE HCL/PF 0.5% (5MG/ML) 10 ML VIAL ONE (07:15)
[2021-08-23] MEDS ORDERED: BACITRACIN 15 GM TUBE TOPICAL OINTMENT ONE (07:15)
[2021-08-23] MEDS ORDERED: FENTANYL CITRATE/PF 50 MCG/ML VIAL ONE ×2 (07:45)
[2021-08-23] MEDS ORDERED: HYDROmorphone HCl 2 MG/ML VIAL ONE ×2 (07:45)
[2021-08-23] MEDS ORDERED: SUCCINYLCHOLINE CHLORIDE 200 MG/10 ML SYRINGE ONE (07:45)
[2021-08-23] MEDS ORDERED: MIDAZOLAM HCL 2 MG/2 ML SINGLE DOSE VIAL ONE ×2 (07:45)
[2021-08-23] MEDS ORDERED: PROPOFOL 20 ML ONE ×8 (07:45→11:33)
[2021-08-23] MEDS ORDERED: VANCOMYCIN 1,000 MG VIAL (RESTRICTED TO ID ONLY) ONE (07:54)
[2021-08-23] MEDS: INSULIN SLIDING SCALE (NOVOLOG) 1 VIAL SQ SCH ×3 (08:02→18:05)
[2021-08-23] MEDS ORDERED: ceFAZolin SODIUM 1 GM VIAL IVPB ONE (09:22)
[2021-08-23] MEDS ORDERED: ceFAZolin SODIUM 1 GM VIAL ONE ×2 (09:23→17:51)
[2021-08-23] MEDS ORDERED: DEXAMETHASONE SOD PHOSPHATE 4 MG/1 ML VIAL ONE (09:35)
[2021-08-23] MEDS ORDERED: ONDANSETRON 4 MG/2 ML VIAL ONE ×2 (09:35→12:02)
[2021-08-23] MEDS ORDERED: VANCOMYCIN 1 GM in D5W (PRE-DOCKED) 1,000 MG/250 ML IVPB ONE (09:48)
[2021-08-23] MEDS ORDERED: BUPIVACAINE HCL/PF 0.5% (5MG/ML) 10 ML VIAL IJ ONE ×2 (11:57)
[2021-08-23] MEDS ORDERED: BACITRACIN 0.9 GM PACKET TP ONE (12:12)
[2021-08-23] MEDS: METOPROLOL TARTRATE 50 MG TABLET (FP) PO SCH ×2 (12:13→21:24)
[2021-08-23] MEDS: POLYETHYLENE GLYCOL (HEALTHYLAX) 3350 17 GM PACKET PO SCH (12:13)
[2021-08-23] MEDS: BUDESONIDE/FORMETEROL FUMARATE 160/4.5 mcg INHALER IH SCH (12:14)
[2021-08-23] MEDS: amLODIPine BESYLATE 5 MG TABLET (FP) PO SCH (12:14)
[2021-08-23] MEDS ORDERED: NALOXONE HCL 0.4 MG/ML VIAL ONE (12:23)
[2021-08-23] MEDS ORDERED: ONDANSETRON 4 MG/2 ML VIAL IVPUSH PRN ×2 (12:23→12:50)
[2021-08-23] MEDS ORDERED: BISACODYL 10 MG SUPP.RECT RC PRN (12:23)
[2021-08-23] MEDS ORDERED: D5-1/2NS+20 MEQ KCL - 1,000 ML IV SCH (12:30)
[2021-08-23] MEDS ORDERED: TETRAHYDROZOLINE HCL EYE DROPS OU PRN (12:45)
[2021-08-23] MEDS ORDERED: ACETAMINOPHEN 325 MG TABLET (FP) PO PRN (12:45)
[2021-08-23] MEDS ORDERED: oxyCODONE HCL 5 MG TABLET PO PRN (12:45)
[2021-08-23] MEDS ORDERED: ALBUTEROL SO4 HFA INHALER IH PRN (12:45)
[2021-08-23] MEDS ORDERED: HYDROmorphone *PCA* 10MG/50ML DISP.SYRIN PCA ONE (14:00)
[2021-08-23 14:03] LABS: BLOOD UREA NITROGEN 18.4 mg/dL (7-18); CALCIUM 9.1 mg/dL (8.5-10.1)
[2021-08-23 14:06] LABS: HEMATOCRIT 44.5 % (32.4-45.2); HEMOGLOBIN 14.4 GM/dL (10.7-15.3); MCH 28.8 pg (25.7-33.7); MCHC 32.4 g/dl (32.0-36.0); MEAN CELL VOLUME 88.9 fl (80-96); MEAN PLT VOLUME 11.5 fl (7.5-11.1); PLATELET COUNT 191 10^3/uL (134-434); RBC 5.01 M/mm3 (3.60-5.2); WHITE BLOOD COUNT 12.7 K/mm3 (4.0-10.0)
[2021-08-23] MEDS: HYDROmorphone *PCA* 10MG/50ML DISP.SYRIN PCA SCH (16:13)
[2021-08-23] MEDS: diazePAM 5 MG TABLET PO SCH ×2 (16:13→21:24)
[2021-08-23] MEDS: LACTATED RINGERS SOLUTION 1,000 ML IV SCH ×2 (16:14→21:31)
[2021-08-23] MEDS ORDERED: INSULIN (NOVOLOG) ASPART 100 UNITS/ML 10ML VIAL ONE (17:50)
[2021-08-23] MEDS ORDERED: DEXTROSE 5%-WATER - 50 ML IVPB ONE (17:51)
[2021-08-23] MEDS: CEFAZOLIN 1 GM in DEXTROSE 5%-WATER - 50 ML IVPB SCH (18:13)
[2021-08-23] MEDS: ATORVASTATIN CA 80 MG TABLET (FP) PO SCH (21:24)
[2021-08-24] MEDS ORDERED: DEXTROSE 5%-WATER - 50 ML IVPB ONE ×2 (01:54→09:35)
[2021-08-24] MEDS ORDERED: ceFAZolin SODIUM 1 GM VIAL ONE ×2 (01:54→09:35)
[2021-08-24] MEDS: CEFAZOLIN 1 GM in DEXTROSE 5%-WATER - 50 ML IVPB SCH ×2 (01:59→09:41)
[2021-08-24] MEDS: DOCUSATE SODIUM 100 MG CAPSULE (FP) PO SCH ×3 (05:09→21:18)
[2021-08-24] MEDS: diazePAM 5 MG TABLET PO SCH ×3 (05:09→21:17)
[2021-08-24] MEDS: GABAPENTIN 100 MG CAPSULE PO SCH ×3 (05:09→21:18)
[2021-08-24] MEDS: LACTATED RINGERS SOLUTION 1,000 ML IV SCH ×2 (05:16→13:42)
[2021-08-24] MEDS: INSULIN SLIDING SCALE (NOVOLOG) 1 VIAL SQ SCH ×3 (06:00→17:15)
[2021-08-24] MEDS ORDERED: ACETAMINOPHEN 1000 MG/100 ML BAG IVPB PRN (08:46)
[2021-08-24] MEDS: METOPROLOL TARTRATE 50 MG TABLET (FP) PO SCH ×2 (09:38→21:17)
[2021-08-24] MEDS: amLODIPine BESYLATE 5 MG TABLET (FP) PO SCH (09:39)
[2021-08-24] MEDS: POLYETHYLENE GLYCOL (HEALTHYLAX) 3350 17 GM PACKET PO SCH (09:42)
[2021-08-24] MEDS: BUDESONIDE/FORMETEROL FUMARATE 160/4.5 mcg INHALER IH SCH (11:24)
[2021-08-24] MEDS: HYDROmorphone *PCA* 10MG/50ML DISP.SYRIN PCA SCH (16:40)
[2021-08-24] MEDS ORDERED: D5-1/2NS+20 MEQ KCL - 20 MEQ/1,000 ML INFUS.BAG IV SCH (18:00)
[2021-08-24] MEDS: ATORVASTATIN CA 80 MG TABLET (FP) PO SCH (21:17)
[2021-08-25] MEDS: INSULIN SLIDING SCALE (NOVOLOG) 1 VIAL SQ SCH ×3 (06:13→16:34)
[2021-08-25] MEDS: diazePAM 5 MG TABLET PO SCH ×3 (06:14→22:39)
[2021-08-25] MEDS: DOCUSATE SODIUM 100 MG CAPSULE (FP) PO SCH ×3 (06:14→22:37)
[2021-08-25] MEDS: GABAPENTIN 100 MG CAPSULE PO SCH ×4 (06:14→22:38)
[2021-08-25] MEDS ORDERED: TAPENTADOL HYDROCHLORIDE 50 MG TABLET PO PRN (08:24)
[2021-08-25] MEDS: amLODIPine BESYLATE 5 MG TABLET (FP) PO SCH (10:33)
[2021-08-25] MEDS: METOPROLOL TARTRATE 50 MG TABLET (FP) PO SCH ×2 (10:33→22:37)
[2021-08-25] MEDS: POLYETHYLENE GLYCOL (HEALTHYLAX) 3350 17 GM PACKET PO SCH (10:40)
[2021-08-25] MEDS: BUDESONIDE/FORMETEROL FUMARATE 160/4.5 mcg INHALER IH SCH (10:40)
[2021-08-25 15:30] LABS: HEMATOCRIT 37.3 % (32.4-45.2); HEMOGLOBIN 12.3 GM/dL (10.7-15.3); MCH 28.9 pg (25.7-33.7); MCHC 32.9 g/dl (32.0-36.0); MEAN CELL VOLUME 87.9 fl (80-96); MEAN PLT VOLUME 11.3 fl (7.5-11.1); PLATELET COUNT 198 10^3/uL (134-434); RBC 4.24 M/mm3 (3.60-5.2); RDW 14.1 % (11.6-15.6); WHITE BLOOD COUNT 14.4 K/mm3 (4.0-10.0)
[2021-08-25 15:50] LABS: CALCIUM 8.4 mg/dL (8.5-10.1)
[2021-08-25 15:51] LABS: BLOOD UREA NITROGEN 8.7 mg/dL (7-18)
[2021-08-25 15:54] LABS: CREATININE 0.6 mg/dL (0.55-1.3)
[2021-08-25 15:55] LABS: BILIRUBIN,TOTAL 0.5 mg/dL (0.2-1)
[2021-08-25 15:56] LABS: TOT PROT 5.9 g/dl (6.4-8.2)
[2021-08-25 15:57] LABS: ALBUMIN 2.5 g/dl (3.4-5.0)
[2021-08-25 20:38] LABS: EPI CELLS 17 /uL (0-25.1); HYALINE CASTS 0 /uL (0-3.1); PH,URINE 6.5 (5.0-8.0); URINE APPEARANCE CLEAR; URINE BACTERIA 266 /uL (0-1359); URINE BILIRUBIN NEGATIVE (NEGATIVE); URINE COLOR YELLOW; URINE GLUCOSE (UA) TRACE (NEGATIVE); URINE KETONE NEGATIVE (NEGATIVE); URINE LEUK ESTERASE 1+ (NEGATIVE); URINE NITRITE NEGATIVE (NEGATIVE); URINE PROTEIN TRACE (NEGATIVE); URINE RBC 5 /uL (0-23.9); URINE UROBILINOGEN 0.2 mg/dL (0.2-1.0); URINE WBC 79 /uL (0-25.8)
[2021-08-25] MEDS ORDERED: ACETAMINOPHEN 325 MG TABLET (FP) PO PRN (20:40)
[2021-08-25] MEDS: ATORVASTATIN CA 80 MG TABLET (FP) PO SCH (22:38)
[2021-08-26] MEDS: GABAPENTIN 100 MG CAPSULE PO SCH ×3 (06:15→21:45)
[2021-08-26] MEDS: INSULIN SLIDING SCALE (NOVOLOG) 1 VIAL SQ SCH ×3 (06:15→16:37)
[2021-08-26] MEDS: diazePAM 5 MG TABLET PO SCH (06:15)
[2021-08-26] MEDS: DOCUSATE SODIUM 100 MG CAPSULE (FP) PO SCH ×3 (06:15→21:45)
[2021-08-26] MEDS ORDERED: MAGNESIUM CITRATE 300 ML BOTTLE PO ONE (10:00)
[2021-08-26] MEDS: amLODIPine BESYLATE 5 MG TABLET (FP) PO SCH (10:45)
[2021-08-26] MEDS: POLYETHYLENE GLYCOL (HEALTHYLAX) 3350 17 GM PACKET PO SCH (10:45)
[2021-08-26] MEDS: METOPROLOL TARTRATE 50 MG TABLET (FP) PO SCH ×2 (10:45→21:45)
[2021-08-26] MEDS: BUDESONIDE/FORMETEROL FUMARATE 160/4.5 mcg INHALER IH SCH (10:46)
[2021-08-26] MEDS ORDERED: TAPENTADOL HYDROCHLORIDE 50 MG TABLET PO PRN (13:00)
[2021-08-26] MEDS: ATORVASTATIN CA 80 MG TABLET (FP) PO SCH (21:45)
[2021-08-27] MEDS: DOCUSATE SODIUM 100 MG CAPSULE (FP) PO SCH ×3 (06:15→21:16)
[2021-08-27] MEDS: GABAPENTIN 100 MG CAPSULE PO SCH ×3 (06:15→21:16)
[2021-08-27] MEDS: INSULIN SLIDING SCALE (NOVOLOG) 1 VIAL SQ SCH ×3 (06:16→16:58)
[2021-08-27] MEDS ORDERED: BISACODYL 5 MG TABLET.DR (FP) PO ONE (08:42)
[2021-08-27] MEDS: amLODIPine BESYLATE 5 MG TABLET (FP) PO SCH (10:34)
[2021-08-27] MEDS: POLYETHYLENE GLYCOL (HEALTHYLAX) 3350 17 GM PACKET PO SCH (10:35)
[2021-08-27] MEDS: METOPROLOL TARTRATE 50 MG TABLET (FP) PO SCH ×2 (10:35→21:16)
[2021-08-27] MEDS: BUDESONIDE/FORMETEROL FUMARATE 160/4.5 mcg INHALER IH SCH (10:36)
[2021-08-27 10:37] LABS: BASO % 0.7 % (0-2.0); EOS % 2.2 % (0-4.5); HEMATOCRIT 37.3 % (32.4-45.2); HEMOGLOBIN 12.7 GM/dL (10.7-15.3); LYMPH % 17.9 % (8-40); MCH 29.3 pg (25.7-33.7); MCHC 34.1 g/dl (32.0-36.0); MEAN CELL VOLUME 85.9 fl (80-96); MEAN PLT VOLUME 11.1 fl (7.5-11.1); MONO % 8.6 % (3.8-10.2); NEUT % 70.6 % (42.8-82.8); PLATELET COUNT 240 10^3/uL (134-434); RBC 4.35 M/mm3 (3.60-5.2); RDW 13.6 % (11.6-15.6); WHITE BLOOD COUNT 9.8 K/mm3 (4.0-10.0)
[2021-08-27] MEDS ORDERED: BISACODYL 5 MG TABLET.DR (FP) PO PRN (11:44)
[2021-08-27] MEDS: ATORVASTATIN CA 80 MG TABLET (FP) PO SCH (21:16)
[2021-08-28 01:39] VITALS: BP 149/77; PULSE 72; TEMP 98.7
== END 2021-08-28 02:25 | DRG 455 ==
LOC: JER 13:55 → UNDOADMOB 21:05 → INTOOBSV 21:05 → JERBED 21:05 → J8W 08-20 13:24 → OBSVTOIN 08-23 10:07
PROVIDERS: ADMIT Internal Medicine; ATTEND Internal Medicine
PROC: 0SG0071 Fusion of Lumbar Vertebral Joint with Autologous Tissue Substitute, Posterior Approach, Posterior Column, Open Approach (ICD-10-PCS; 2021-08-23)
PROC: 01NB0ZZ Release Lumbar Nerve, Open Approach (ICD-10-PCS; 2021-08-23)
PROC: 0SB20ZZ Excision of Lumbar Vertebral Disc, Open Approach (ICD-10-PCS; 2021-08-23)
PROC: 4A11X4G Monitoring of Peripheral Nervous Electrical Activity, Intraoperative, External Approach (ICD-10-PCS; 2021-08-23)
PROC: 0SG00AJ Fusion of Lumbar Vertebral Joint with Interbody Fusion Device, Posterior Approach, Anterior Column, Open Approach (ICD-10-PCS; principal; 2021-08-23 08:30)
DX: M48.061 Spinal stenosis, lumbar region without neurogenic claudication (principal); M51.16 Intervertebral disc disorders with radiculopathy, lumbar region; M41.86 Other forms of scoliosis, lumbar region; I10 Essential (primary) hypertension; K21.9 Gastro-esophageal reflux disease without esophagitis; E78.00 Pure hypercholesterolemia, unspecified; D25.9 Leiomyoma of uterus, unspecified; J45.909 Unspecified asthma, uncomplicated; F39 Unspecified mood [affective] disorder; E11.42 Type 2 diabetes mellitus with diabetic polyneuropathy; I25.10 Atherosclerotic heart disease of native coronary artery without angina pectoris; E66.9 Obesity, unspecified; Z68.27 Body mass index [BMI] 27.0-27.9, adult; Z95.1 Presence of aortocoronary bypass graft
CPT/HCPCS: 36415; 71045-TC-FY; 71046-TC-FY; 72100-TC-FY; 72148-TC; 76000-TC-FY; 80048; 80053; 81003; 82962; 83036; 83735; 84100; 85025; 85027; 85610; 86850; 86900; 86901; 87086; 87804; 87807; 88304-TC; 93005; 93010; 94010; 94760; 97116-GP; 97161-GP; 99285-25; C9803-CS; G0378; U0003; U0005

== ENCOUNTER 2023-03-23 20:29 | Emergency (ER) | payer OTHER ==
[2023-03-23 20:36] VITALS: TEMP 98.1; BMI 25.4
[2023-03-23] MEDS ORDERED: ALBUTEROL SO4 2.5/IPRATROPIUM 0.5 INH SOL 3 ML VIAL.NEB. NEB ONE ×3 (20:38→22:25)
[2023-03-23] MEDS ORDERED: MAGNESIUM SULFATE IN WATER 2 GM/50 ML IVPB IVPB ONE ×2 (20:50→20:59)
[2023-03-23] MEDS ORDERED: methylPREDNISolone NA SUCC 125 MG/2 ML VIAL IVPUSH ONE (20:50)
[2023-03-23] MEDS ORDERED: methylPREDNISolone NA SUCC 125 MG/2 ML VIAL ONE (20:59)
[2023-03-23] MEDS: ALBUTEROL SO4 2.5/IPRATROPIUM 0.5 INH SOL 3 ML VIAL.NEB. NEB SCH ×5 (21:09→23:10)
[2023-03-23 21:29] LABS: BASO % 0.9 % (0-2.0); EOS % 4.7 % (0-4.5); HEMATOCRIT 44.9 % (32.4-45.2); HEMOGLOBIN 14.6 GM/dL (10.7-15.3); LYMPH % 29.6 % (8-40); MCH 28.9 pg (25.7-33.7); MCHC 32.6 g/dl (32.0-36.0); MEAN CELL VOLUME 88.6 fl (80-96); MEAN PLT VOLUME 12.3 fl (7.5-11.1); MONO % 6.4 % (3.8-10.2); NEUT % 58.4 % (42.8-82.8); PLATELET COUNT 218 10^3/uL (134-434); RBC 5.06 M/mm3 (3.60-5.2); RDW 13.9 % (11.6-15.6); WHITE BLOOD COUNT 11.8 K/mm3 (4.0-10.0)
[2023-03-23 21:42] LABS: POTASSIUM 3.9 mmol/L (3.5-5.1)
[2023-03-23 21:44] LABS: CALCIUM 9.4 mg/dL (8.5-10.1)
[2023-03-23 21:45] LABS: ALBUMIN 3.6 g/dl (3.4-5.0); BLOOD UREA NITROGEN 17.3 mg/dL (7-18)
[2023-03-23 21:49] LABS: BILIRUBIN,TOTAL 0.5 mg/dL (0.2-1); TOT PROT 7.1 g/dl (6.4-8.2)
[2023-03-23 23:34] VITALS: BP 124/67; PULSE 64; RESP 18
== END 2023-03-24 00:16 | disposition home or self-care (01) ==
LOC: JER 20:29
PROC: 3E033GC Introduction of Other Therapeutic Substance into Peripheral Vein, Percutaneous Approach (ICD-10-PCS; principal; 2023-03-23)
PROC: 3E033GC Introduction of Other Therapeutic Substance into Peripheral Vein, Percutaneous Approach (ICD-10-PCS; 2023-03-23)
PROC: 3E0F7GC Introduction of Other Therapeutic Substance into Respiratory Tract, Via Natural or Artificial Opening (ICD-10-PCS; 2023-03-23)
DX: R06.02 Shortness of breath (principal); R05.9 Cough, unspecified; R07.89 Other chest pain; J45.909 Unspecified asthma, uncomplicated; Z20.822 Contact with and (suspected) exposure to COVID-19
CPT/HCPCS: 0241U-QW; 36415; 71045-TC-FY; 80053; 84484; 85025; 93005; 93010; 99285-25